=== PATIENT | male | born 1955 | race Caucasian/White ===

== ENCOUNTER 2020-03-17 14:59 | Inpatient (IN) | payer BC, MEDICARE ==
--- NOTE | 2020-03-17 15:24 | RAD ---
PORTABLE CHEST: 03/17/20 HISTORY: Chest pain. No evidence of infiltrate. Heart size is mildly prominent. No evidence of vascular congestion. No eff usion. IMPRESSION: No acute findings. POS: AH
[2020-03-17 15:31] LABS: #Monocytes 0.8 thou/uL (0.11-0.59); #Neutrophils 5.4 thou/uL (1.40-6.50); %Basophils 0.5 % (0.0-1.0); %Eosinophils 0.4 % (0.0-10.0); %Lymphocytes 24.6 % (21.0-51.0); %Monocytes 9.1 % (0.0-10.0); %Neutrophils 65.3 % (42.0-75.0); Hemoglobin 16.5 g/dL (14.0-18.0); Mean Corpuscular HGB CONC 34.3 g/dL (32.0-36.0); Mean Corpuscular Hemoglobin 32.1 pg (27.0-31.0); Mean Corpuscular Volume 93.5 fL (78.0-98.0); Mean Platelet Volume 8.5 fL (7.4-10.4); Platelet Count 199 thou/uL (130-400); RBC Distribution Width 12.5 % (11.5-14.5); Red Blood Cell (RBC) Count 5.15 mill/uL (4.70-6.10); White Blood Cell (WBC) Count 8.2 thou/uL (4.8-10.8)
[2020-03-17 15:52] LABS: ALT (SGPT) 39 U/L (8-55); AST (SGOT) 39 U/L (5-34); Albumin 3.8 g/dL (3.4-4.8); Alkaline Phosphatase 87 U/L (40-110); Anion Gap 17 mmol/L (10-20); BUN (Urea Nitrogen) 13 mg/dL (8.4-25.7); Bilirubin, Total 1.5 mg/dL (0.2-1.2); Calc. Creatinine Clearance 0 mL/min (70-130); Carbon Dioxide 22 mmol/L (23-31); Chloride 101 mmol/L (98-107); Globulin 3.3 g/dL (2.4-3.5); Glucose 186 mg/dL (80-115); Potassium 3.4 mmol/L (3.5-5.1); Protein, Total 7.1 g/dL (5.8-8.1); Sodium 137 mmol/L (136-145)
[2020-03-17] MEDS ORDERED: Acetaminophen 500 MG TAB ONE (16:56)
[2020-03-17 18:17] LABS: Troponin I 0.148 ng/mL (< 0.028)
[2020-03-17] MEDS ORDERED: Aspirin Chewable 81 MG TAB ONE (19:24)
[2020-03-17] MEDS ORDERED: Enoxaparin Sodium 100 MG/ML SYRINGE ONE (19:25)
[2020-03-17 21:50] VITALS: BMI 28.3
[2020-03-17] MEDS: Acetaminophen 325 MG TAB PO PRN (21:57)
[2020-03-17] MEDS ORDERED: Nitroglycerin 0.4 MG TAB (25 Tab Bottle) SL PRN (22:02)
--- NOTE | 2020-03-17 22:44 | PDOC.HHP ---
Hospitalist HPI - History of Present Illness History of Present Illness: ADMISSION DATE: 03/17/2020 TIME OF ASSESSMENT: 2099 PRIMARY CARE PHYSICIAN: Out of town CHIEF COMPLAINT: Chest pain and lightheadedness HPI: This is a 64-year-old gentleman who presents to the emergency department via EMS after going to the local urgent care center due to chest pain which started at approximately 1 PM and feeling generally unwell as well as lightheaded. The patient was noted to be severely tachycardic in the 200s therefore EMS was called. On arrival he was noted to be in SVT which was initially treated with adenosine (6 mg followed by dose of 12 mg). He became hypotensive therefore the decision was made to cardiovert. His heart rate improved to 104 and his blood pressure increased to 160/80. He recalls being extremely diaphoretic and lightheaded. Does not remember much after being cardioverted until he arrived to the emergency department here. He had been seen on Monday for Covid testing as required by his employer given his recent exposure to his mother who tested positive for Covid in February. The patient was noted to be hypertensive with systolic blood pressure in the 200s. He was given medication for his blood pressure and then discharged home with instructions to follow-up with his primary care physician. He is recently relocated here from the [facility] in [place] but has been unable to establish care with a PCP due to recent issues with [employer] Blue [employer] coverage. Patient states that he had been feeling foggy at that time that he was noted to have an elevated blood pressure and felt like that again today which is what prompted him to go to the urgent care center as he thought his blood pressure was elevated once again. It was not until started driving that he began to experience chest pain. His pain immediately resolved after cardioversion and currently he reports mild discomfort in the center of his chest. He states it was a 10 out of 10 in severity described as a stabbing pain. Now his discomfort is a 2 out of 10 described as a dull ache. Reports being treated for V. tach in the past and possibly A. fib. Denies any previous cardiac procedures. Only in the process of establishing care with a partner manager. ED COURSE: On arrival to the emergency department the patient was noted to have a blood pressure of 155/100 and heart rate of 99. Initial EKG done in the emergency department showed normal sinus rhythm however repeat EKG showed SVT with a rate of 150. ST depression seen in V3 through V6. He converted to normal sinus rhythm. Most recent EKG demonstrated normal sinus rhythm with a no ST changes. T wave inversion noted in V5 and V6. Laboratory studies showed white cell count of 8.2, hemoglobin 16.5, hematocrit 40.2, neutrophils 65.3%, platelets 199. Potassium 3.4, BUN 13, creatinine 1.36, GFR 53, glucose 186, total bilirubin 1.5, AST 39, ALT 39, alk phos 87, troponin negative. Chest x-ray was done showing no acute findings. PAST MEDICAL HISTORY: 1. Hypertension 2. History of V. tach PAST SURGICAL HISTORY: 1. Cholecystectomy 2. Tonsillectomy SOCIAL HISTORY: He denies any tobacco use. Reports occasional alcohol consumpt ion. Denies any illicit drug use. FAMILY HISTORY: Family history of heart disease. His father of an ND in his 70s. His mother also had an ND in her 60s. ALLERGIES: Penicillin Tazobactam CURRENT MEDICATIONS: Lisinopril 0.5 mg p.o. twice a day Metoprolol tartrate 50 mg p.o. twice daily Clonidine 0.1 mg p.o. as needed, recently prescribed Hospitalist ROS - Medication Medications: Active Medications Generic Name Dose Route Start Last Admin Trade Name Freq PRN Reason Stop Dose Admin Acetaminophen 650 mg 03/17/20 21:30 03/17/20 21:57 Acetaminophen 325 Mg Tab PO 03/18/20 07:25 650 mg Q4H PRN Administration Headache/Fever or Pain - Exam General Appearance: NAD, awake alert General - other findings: Appears flushed, Eye: PERRL, anicteric sclera ENT: normocephalic atraumatic, no oropharyngeal lesions Neck: supple, no lymphadenopathy Heart: RRR, no murmur, no gallops, normal peripheral pulses Respiratory: CTAB, no wheezes, no rales, no ronchi, normal chest expansion Gastrointestinal: soft, non-tender, non-distended, normal bowel sounds Extremities: no edema Skin: normal turgor, no lesions, no rashes Neurological: cranial nerve grossly intact, normal sensation to touch, no weakness Musculoskeletal: normal tone, normal strength, no muscle wasting Psychiatric: normal affect, normal behavior, A&O x 3 Hospitalist Results - Labs Result Diagrams: 03/17/20 15:03 03/17/20 22:15 Lab results: WBC 8.2 thou/uL (4.8-10.8) 03/17/20 15:03 Hgb 16.5 g/dL (14.0-18.0) 03/17/20 15:03 Hct 48.2 % (42.0-52.0) 03/17/20 15:03 MCV 93.5 fL (78.0-98.0) 03/17/20 15:03 Plt Count 199 thou/uL (130-400) 03/17/20 15:03 Neutrophils % 65.3 % (42.0-75.0) 03/17/20 15:03 Sodium 137 mmol/L (136-145) 03/17/20 15:03 Potassium 3.4 mmol/L (3.5-5.1) L 03/17/20 15:03 Chloride 101 mmol/L (98-107) 03/17/20 15:03 Carbon Dioxide 22 mmol/L (23-31) L 03/17/20 15:03 BUN 13 mg/dL (8.4-25.7) 03/17/20 15:03 Creatinine 1.36 mg/dL (0.7-1.3) H 03/17/20 15:03 Glucose 186 mg/dL (80-115) H 03/17/20 15:03 Calcium 9.0 mg/dL (7.8-10.44) 03/17/20 15:03 Total Bilirubin 1.5 mg/dL (0.2-1.2) H 03/17/20 15:03 AST 39 U/L (5-34) H 03/17/20 15:03 ALT 39 U/L (8-55) 03/17/20 15:03 Alkaline Phosphatase 87 U/L (40-110) 03/17/20 15:03 Troponin I 0.148 ng/mL (< 0.028) H 03/17/20 17:43 Serum Total Protein 7.1 g/dL (5.8-8.1) 03/17/20 15:03 Albumin 3.8 g/dL (3.4-4.8) 03/17/20 15:03 Hospitalist H&P A/P - Problem (1) SVT (supraventricular tachycardia) Code(s): I47.1 - SUPRAVENTRICULAR TACHYCARDIA Status: Acute (2) NSTEMI (non-ST elevated myocardial infarction) Code(s): I21.4 - NON-ST ELEVATION (NSTEMI) MYOCARDIAL INFARCTION Status: Acute (3) DAREN (acute kidney injury) Code(s): N17.9 - ACUTE KIDNEY FAILURE, UNSPECIFIED Status: Acute (4) Hypertension Code(s): I10 - ESSENTIAL (PRIMARY) HYPERTENSION Status: Chronic (5) History of ventricular tachycardia Code(s): Z86.79 - PERSONAL HISTORY OF OTHER DISEASES OF THE CIRCULATORY SYSTEM Status: Chronic - Plan Plan: Continue cardiac monitoring Cardiology consult placed NPO after midnight Continue Lovenox and ASA Monitor BP Echo ordered Hold antihypertensives for now (BP 130s systolic) Check Mg+ and TSH Check alcohol level and UDS IV fluids Monitor renal function Resume statin Check lipid panel with AM labs CODE STATUS: FULL Case discussed with Dr. Linares who agrees with plan as above.
[2020-03-17 22:45] LABS: Anion Gap 15 mmol/L (10-20); Carbon Dioxide 27 mmol/L (23-31); Chloride 101 mmol/L (98-107); Potassium 3.5 mmol/L (3.5-5.1); Sodium 139 mmol/L (136-145)
[2020-03-17 23:16] LABS: CKMB 3.5 ng/mL (0-6.6)
[2020-03-17] MEDS ORDERED: Morphine 2 MG/ML VIAL SLOW IVP SCH (23:45)
[2020-03-18] MEDS ORDERED: Magnesium 2 GM/50 ML 2 GM in Premix Bag 1 BAG IVPB SCH (00:30)
[2020-03-18] MEDS: Sodium Chloride 0.9% 1,000 ML IV SCH ×3 (00:44→19:55)
[2020-03-18] MEDS ORDERED: Nitroglycerin 2% Ointment 1 INCH/1 GM Packet ONE (04:43)
[2020-03-18] MEDS: Acetaminophen 325 MG TAB PO PRN (04:48)
[2020-03-18 05:44] LABS: Cardiac Risk 3.8 (Less than 4.5); Critical Call Chem Troponin I RESULT DECREASING
[2020-03-18 05:53] LABS: Amphetamine Not Detected (NotDetected); Barbiturates Screen Not Detected (NotDetected); Benzodiazepine Screen Not Detected (NotDetected); Cocaine Metabolite Screen Not Detected (NotDetected); Medtox Control Line Valid? VALID (VALID); Medtox Reader # READER 4; Methadone Not Detected (NotDetected); Methamphetamine Not Detected (NotDetected); Opiate Screen Not Detected (NotDetected); Oxycodone Screen Not Detected (NotDetected); Phencyclidine (PCP) Not Detected (NotDetected); THC/Cannabinoid Screen Not Detected (NotDetected); Tricyclic Screen Not Detected (NotDetected)
[2020-03-18 06:09] LABS: Bacteria/HPF None Seen HPF (None Seen); Bilirubin Negative (Negative); Blood, Urine Trace (Negative); Clarity Clear (Clear); Glucose, Urine (Dipstick) Normal (Negative); Ketone, Urine Negative (Negative); Leukocyte Negative Leu/uL (Negative); Mucous/LPF 3+ LPF (<2+); Nitrite Negative (Negative); Protein, Urine (Dipstick) 30 mg/dL (Neg-Trace); Specific Gravity, Urine 1.027 (1.002-1.036); Squamous Epithelial 0-3 HPF (0-3); Urobilinogen Normal mg/dL (Less than 2); pH, Urine 5.5 (5.0-9.0)
[2020-03-18 06:11] LABS: Urine Culture Reflex Yes Yes
[2020-03-18] MEDS: Nitroglycerin 2% Ointment 1 INCH/1 GM Packet TOP SCH ×3 (06:20→21:06)
[2020-03-18 06:26] LABS: CKMB 2.8 ng/mL (0-6.6)
[2020-03-18 07:23] LABS: SARS-CoV-2 MS2 Positive; SARS-CoV-2 N Gene Negative; SARS-CoV-2 S Gene Negative; SARS-CoV-2 by NAA Not Detected (NotDetected); SARS-CoV-2 orf1ab Negative
[2020-03-18] MEDS: Enoxaparin Sodium 80 MG/0.8 ML SYRINGE SC SCH ×2 (08:20→20:30)
[2020-03-18] MEDS: Aspirin Chewable 81 MG TAB PO SCH (08:20)
[2020-03-18 09:30] LABS: CKMB 2.4 ng/mL (0-6.6)
[2020-03-18] MEDS ORDERED: cloNIDine 0.1 MG TAB PO PRN (11:04)
[2020-03-18] MEDS: Morphine 4 MG/ML VIAL SLOW IVP PRN ×2 (14:00→22:08)
--- NOTE | 2020-03-18 14:24 | CON ---
DATE OF CONSULTATION: HISTORY OF PRESENT ILLNESS: Александр Bender is a 64-year-old white male, who approximately 3 years ago began to have episodes of rapid heartbeat. He will feel his heart beating fast and these episodes would last 2 to 5 minutes. They have increased in frequency to where he is having these at least one time per week, although at times he may have several in a day. He was told 2 to 3 years ago that he had ventricular tachycardia and underwent a stress test which apparently was normal. Yesterday, he again had the rapid heartbeat accompanied by chest tightness, shortness of breath and diaphoresis. This started approximately 1:00 p.m. and then 2 to 3 hours later, EMS was called. He was taken to an urgent care center. He was given adenosine 6 mg followed by 12 mg and he became hypotensive and was cardioverted. He then converted to sinus rhythm. PAST MEDICAL HISTORY: Hypertension, history of ventricular tachycardia according to the patient. OPERATIONS: Cholecystectomy and tonsillectomy. MEDICATIONS: 1. Clonidine 0.1 mg p.r.n. 2. Lisinopril 10 mg daily. 3. Metoprolol 50 b.i.d. 4. Pantoprazole 40 daily. ALLERGIES: PIPERACILLIN AND TAZOBACTAM (ZOSYN), PENICILLIN. SOCIAL HISTORY: He does not smoke. He occasionally drinks alcohol. FAMILY HISTORY: Father of [place] in his 70s. Mother of [place] in her early 60s. REVIEW OF SYSTEMS: Ten-point review of systems is otherwise unremarkable. PHYSICAL EXAMINATION: VITAL SIGNS: Blood pressure 152/86, pulse 63. HEENT: PERRL. NECK: Supple. CHEST: Clear. CARDIAC: S1 and S2 normal without any S3, S4, or murmurs. Carotid upstrokes normal without bruits. ABDOMEN: Normal bowel sounds without tenderness or organomegaly. EXTREMITIES: Revealed no clubbing, cyanosis, or edema. NEUROLOGIC: Grossly intact. SKIN: Warm and dry. LABORATORY DATA: EKG at the urgent care center showed supraventricular tachycardia with a rate of 180 to 200. There was [address] segment depression in V4 and V5. Subsequent EKGs here revealed development of inverted T-wave in V4 through V6. On the monitor, there is some indication that he may have paroxysmal atrial tachycardia. CBC is unremarkable. Troponin I is up to 0.452. Cholesterol 176, triglycerides 245, HDL 46, LDL 81. BNP 109.6. Sodium 139, potassium 3.5, chloride 101, carbon dioxide 27, BUN 13, creatinine 1.36, glucose 186. Echocardiogram revealed ejection fraction of 55% to 60% with evidence for diastolic dysfunction, mild left atrial enlargement, mild mitral regurgitation, and mild tricuspid regurgitation. IMPRESSION: 1. Supraventricular tachycardia, which apparently did not respond to adenosine 6 and then 12 mg. Due to hypotension, he was cardioverted. He has episodes at least one time per week. 2. Probable paroxysmal atrial tachycardia, from what we see on the monitor here. 3. History of ventricular tachycardia 3 years ago. 4. Non-ST elevation myocardial infarction, probably type 2, although he does have new T-wave changes V4 through V6. 5. Hypertension. 6. Positive family history. 7. Hypertriglyceridemia. RECOMMENDATIONS: With prolonged chest discomfort and new T-wave changes, the patient will undergo adenosine Cardiolite testing. Also, Electrophysiology will be consulted for consideration of EP testing and possible ablation. Job ID: [id number] [email or web address]
--- NOTE | 2020-03-18 15:52 | PDOC.HOSPP ---
- Subjective Encounter Date: 03/18/20 Encounter Time: 07:30 Subjective: Pt seen for followup re: NSTEMI. Chest pain is better. - Objective Vital Signs & Weight: Vital Signs (12 hours) Temp Pulse Resp BP Pulse Ox 03/18/20 15:37 97.8 F 71 16 156/84 H 95 03/18/20 11:06 97 03/18/20 10:58 98.0 F 63 16 152/86 H 97 03/18/20 07:03 98.4 F 66 16 92/68 94 L 03/18/20 04:00 97.8 F 68 16 135/72 96 Weight Weight 186 lb 4.65 oz I&O: 03/17/20 03/18/20 03/19/20 06:59 06:59 06:59 Intake Total 480 Output Total 100 Balance 380 Result Diagrams: 03/17/20 15:03 03/17/20 22:15 Additional Labs: I reviewed labs and [place] Hospitalist ROS - Review of Systems Cardiovascular: reports: chest pain. denies: palpitations, orthopnea, paroxysmal noc. dyspnea, edema, light headedness Gastrointestinal: denies: nausea, vomiting, abdominal pain, diarrhea, constipation, melena, hematochezia - Medication Medications: Active Medications Generic Name Dose Route Start Last Admin Trade Name Freq PRN Reason Stop Dose Admin Aspirin 81 mg 03/18/20 09:00 03/18/20 08:20 Aspirin Chewable 81 Mg Tab PO 81 mg DAILY MELY Administration Enoxaparin Sodium 80 mg 03/18/20 09:00 03/18/20 08:20 Enoxaparin Sodium 80 Mg/0.8 Ml Syringe SC 80 mg 0900,2100 MELY Administration Sodium Chloride 1,000 mls @ 100 mls/hr 03/17/20 23:45 03/18/20 11:42 Normal Saline 0.9% IV 1,000 mls .Q10H MELY Administration Morphine Sulfate 4 mg 03/18/20 11:10 03/18/20 14:00 Morphine 4 Mg/Ml Vial SLOW IVP 4 mg Q6H PRN Administration Pain Nitroglycerin 0.4 mg 03/17/20 22:02 03/17/20 23:35 Nitroglycerin 0.4 Mg Tab (25 Tab Bottle) SL 0.4 mg Q5MIN PRN Administration Chest Pain Nitroglycerin 0.5 inch 03/18/20 06:00 03/18/20 15:41 Nitroglycerin 2% Ointment 1 Inch/1 Gm Packet TOP 0.5 inch Q8HR MELY Administration - Exam General Appearance: awake alert Eye: anicteric sclera ENT: normocephalic atraumatic Neck: supple Heart: RRR Respiratory: CTAB Gastrointestinal: soft, non-tender Skin: no rashes Psychiatric: normal affect, normal behavior Hosp A/P - Plan - Problem (1) NSTEMI (non-ST elevated myocardial infarction) Code(s): I21.4 - NON-ST ELEVATION (NSTEMI) MYOCARDIAL INFARCTION Status: Acute (2) SVT (supraventricular tachycardia) Code(s): I47.1 - SUPRAVENTRICULAR TACHYCARDIA Status: Acute (3) DAREN (acute kidney injury) Code(s): N17.9 - ACUTE KIDNEY FAILURE, UNSPECIFIED Status: Acute (4) Hypertension Code(s): I10 - ESSENTIAL (PRIMARY) HYPERTENSION Status: Chronic (5) History of ventricular tachycardia Code(s): Z86.79 - PERSONAL HISTORY OF OTHER DISEASES OF THE CIRCULATORY SYSTEM Status: Chronic - Plan Plan: Monitor on telemetry Continue Lovenox and ASA For cath tomorrow EP service consulted Follow creatinine and lytes CODE STATUS: FULL
[2020-03-18] MEDS: Metoprolol Tartrate 50 MG TAB PO SCH ×2 (20:30→22:02)
--- NOTE | 2020-03-18 22:07 | CON ---
DATE OF CONSULTATION: 03/18/2020 REASON FOR CONSULTATION: SVT. HISTORY OF PRESENT ILLNESS: Mr. Bender is a 64-year-old gentleman, who presented to the hospital with palpitations, rapid heartbeats with associated chest tightness, shortness of breath and diaphoresis. This started and he called EMS 2-3 hours after onset of symptoms when he was taken to an urgent care center. He was given adenosine of 6 mg followed by 12 mg IV push dose. This did not terminate his SVT. He became hypotensive and was cardioverted emergently to restore sinus rhythm. Mr. Bender also reportedly has a history of possible ventricular tachycardia and is followed by a director business development out of [facility] in [facility] by the name of Lenny Carter. Currently, he is feeling well, resting in bed, reporting no symptoms, but rather unsettled by the events of the day. PAST MEDICAL HISTORY: 1. Hypertension. 2. Possible history of ventricular tachycardia pending confirm from director business development's records. HOME MEDICATIONS: 1. Clonidine p.r.n. 2. Lisinopril 10 mg daily. 3. Metoprolol 50 mg b.i.d. 4. Pantoprazole 40 mg daily. ALLERGIES: ZOSYN, PENICILLIN. SOCIAL HISTORY: Negative for tobacco, occasional alcohol consumption. Negative for illicit drug use. FAMILY HISTORY: Father in his 70s of an [place] and mother in her early 60s of an [place]. REVIEW OF SYSTEMS: A 12-point review of systems was otherwise unremarkable and as per HPI. OBJECTIVE: VITAL SIGNS: Temperature 97.8, pulse 71, blood pressure 156/84, respirations 16, and oxygen 95% on room air. GENERAL: Patient is alert, oriented. Speech is clear. Affect is appropriate. He is in no apparent distress, resting comfortably in bed at time of the exam. NEUROLOGIC EXAM: Grossly intact and nonfocal. HEENT: Normocephalic, atraumatic. Sclerae anicteric EOMs are intact. Oral mucosa is moist, pink with adequate dentition. NECK: Supple without jugular venous distention. Trachea is midline. There is no lymphadenopathy. LUNGS: Clear to auscultation bilaterally without wheezes, crackles, or rhonchi. CARDIOVASCULAR: His heart rate is irregularly irregular with crisp S1 and S2. PMI is nondisplaced. ABDOMEN: Soft, nontender without palpable masses. EXTREMITIES: Warm and dry to touch. Well perfused without clubbing, cyanosis, or edema. Gait was not assessed. LABORATORY DATA: Hematology was reviewed and unremarkable. Chemistry was reviewed, potassium 3.5, magnesium 1.8. Troponins mildly elevated, peaked at 0.452. Echocardiogram, preserved LVEF 55-60%. Date of study 03/18/2020. Left atrium dimension not measured/reported. 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 IMPRESSION: 1. Supraventricular tachycardia. 2. Questionable history of ventricular tachycardia. 3. [id number] myocardial infarction followed by Cardiology. 4. Hypertension. PLAN AND RECOMMENDATIONS: Mr. Bender is a pleasant 64-year-old gentleman, who comes in with a supraventricular tachycardia. 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 Alternatively, this could be a 1:1 atrial flutter. I have requested records from his director business development out of [place] regarding possible history of ventricular tachycardia. His EF is preserved and he is on beta zachary therapy already. He is currently undergoing workup and evaluation with Cardiology. Pending the results of these tests, we could consider an electrophysiology study with ablation possibly on Monday to further investigate and address his supraventricular tachycardia. We discussed the possible risks, benefits, and alternatives with this procedure and he is willing to proceed. We will continue to follow his workup in the next day or 2. Thank you for allowing me to participate in the care of this patient. Job ID: [id number]
[2020-03-19] MEDS: Nitroglycerin 2% Ointment 1 INCH/1 GM Packet TOP SCH ×3 (05:27→21:01)
[2020-03-19] MEDS: Sodium Chloride 0.9% 1,000 ML IV SCH ×2 (05:27→20:52)
[2020-03-19] MEDS: Metoprolol Tartrate 50 MG TAB PO SCH ×3 (08:04→20:50)
[2020-03-19] MEDS: Enoxaparin Sodium 80 MG/0.8 ML SYRINGE SC SCH ×2 (09:04→20:50)
[2020-03-19] MEDS: Aspirin Chewable 81 MG TAB PO SCH (09:04)
[2020-03-19] MEDS: Lisinopril 10 MG TAB PO SCH (13:09)
--- NOTE | 2020-03-19 13:11 | NM ---
EXAM: CARDIAC SPECT HISTORY: Chest pain, shortness of breath, hypertension, ventricular tachycardia, SVT, TECHNIQUE: A myocardial perfusion scan was performed using the single isotope 1 day protocol with leonard hnetium 99m sestamibi. [10 mCi] was injected intravenously for the rest exam followed by 30 mCi for the stress study. Pharmacologic stress with adenosine was monitored and interpreted by Dr. Gary FINDINGS: Homogeneous tracer distribution is seen in the myocardial segments on stress and rest image s without fixed or reversible defects. Gated SPECT LVEF: 54% Wall motion exam: Normal IMPRESSION: Normal myocardial perfusion scan
[2020-03-19] MEDS: Morphine 4 MG/ML VIAL SLOW IVP PRN ×2 (13:14→18:37)
[2020-03-19] MEDS ORDERED: ADENOSINE 60 MG/20 ML VIAL ONE (13:23)
--- NOTE | 2020-03-19 17:07 | PDOC.EP ---
- Subjective Date: 03/19/20 Time: 08:00 Interval History: Feels weak today. He is scheduled for stress test later today. He is agreeable to moving forward with EP study and possible ablation tomorrow. No recurrent heart racing, palpitations, or chest pain overnight - Review of Systems Constitutional: reports: weakness. denies: chills, fever, malaise, sweats, other Respiratory: denies: cough, dry, hemoptysis, pleuritic pain, shortness of breath, SOB with excertion, sputum, wheezing, other Cardiology: denies: chest pain, edema, heart racing, light headedness, paroxysmal noc. dyspnea, orthopnea, palpitations, passing out, pleuritic pain, pressure, swelling, other Gastrointestinal: denies: abdominal pain, constipation, diarrhea, hematochezia, melena, nausea, vomitting, other Musculoskeletal: denies: unstable gait, falls, neck pain, shoulder pain, arm pain, hand pain, leg pain, foot pain, other - Objective Allergies/Adverse Reactions: Allergies Allergy/AdvReac Type Severity Reaction Status Date / Time piperacillin [From Zosyn] Allergy Severe Anaphylaxis Verified 03/17/20 21:47 tazobactam [From Zosyn] Allergy Severe Anaphylaxis Verified 03/17/20 21:47 Penicillins Allergy Unknown Hives Verified 03/17/20 21:47 Current Medications Aspirin (Aspirin Chewable 81 Mg Tab) 81 mg PO DAILY [facility] Last Admin: 03/19/20 09:04 Dose: 81 mg Documented by: Clonidine (Clonidine 0.1 Mg Tab) 0.1 mg PO PRN PRN PRN Reason: Hypertension Enoxaparin Sodium (Enoxaparin Sodium 80 Mg/0.8 Ml Syringe) 80 mg SC 0900,2100 [facility] Last Admin: 03/19/20 09:04 Dose: 80 mg Documented by: Sodium Chloride (Normal Saline 0.9%) 1,000 mls @ 100 mls/hr IV .Q10H [facility] Last Admin: 03/19/20 05:27 Dose: 1,000 mls Documented by: Lisinopril (Lisinopril 10 Mg Tab) 10 mg PO DAILY [facility] Last Admin: 03/19/20 13:09 Dose: 10 mg Documented by: Metoprolol Tartrate (Metoprolol Tartrate 50 Mg Tab) 50 mg PO BID [facility] Last Admin: 03/19/20 13:09 Dose: 50 mg Documented by: Morphine Sulfate (Morphine 4 Mg/Ml Vial) 4 mg SLOW IVP Q6H PRN PRN Reason: Pain Last Admin: 03/19/20 13:14 Dose: 4 mg Documented by: Nitroglycerin (Nitroglycerin 0.4 Mg Tab (25 Tab Bottle)) 0.4 mg SL Q5MIN PRN PRN Reason: Chest Pain Last Admin: 03/17/20 23:35 Dose: 0.4 mg Documented by: Nitroglycerin (Nitroglycerin 2% Ointment 1 Inch/1 Gm Packet) 0.5 inch TOP Q8HR [facility] Last Admin: 03/19/20 14:12 Dose: Not Given Documented by: Pantoprazole Sodium (Pantoprazole 40 Mg Tab) 40 mg PO DAILY [facility] Last Admin: 03/19/20 09:04 Dose: 40 mg Documented by: Vital Signs & Weight: Vital Signs Temp Pulse Resp BP Pulse Ox 03/19/20 16:24 99.1 F 67 16 159/88 H 96 03/19/20 13:07 98.3 F 70 18 178/98 H 98 03/19/20 07:30 98.4 F 65 16 173/87 H 92 L 03/19/20 06:25 93 L Weight 186 lb 4.65 oz I/O: I/O 03/18/20 03/19/20 03/20/20 06:59 06:59 06:59 Intake Total 480 1800 Output Total 100 Balance 380 1800 - Physical Exam General: alert & oriented x3, appears well, no apparent distress, speech clear, affect appropriate HEENT: mucus membranes moist, normocephaly Neck: supple neck, midline trachea, no JVD/HJR, no masses, no bruit, no lymphadenopathy, no thromegaly Cardiology: regular rate and rhythm, no murmur, regular rate, regular rhythm, PMI nondisplaced Lungs: clear to auscultation, normal breath sounds, normal exam, no wheeze, rales, rhonchi, no wheezes, no rales, no rhonchi Neurology: cranial nerve 2-12 intact, grossly intact, motor function intact, sensory function intact, negative rhomberg, coordination normal, no lateralizing findings - Labs Result Diagrams: 03/17/20 15:03 03/17/20 22:15 - EKG Interpretation EKG Method: Telemetry EKG shows: Sinus rhythm - Assessment/Plan Assessment/Plan: IMPRESSION: 1. Supraventricular tachycardia. 2. Questionable history of ventricular tachycardia. 3. [id number] myocardial infarction followed by Cardiology. 4. Hypertension. pending stress test later today. Anticipate EP study with possible ablation tomorrow scheduled at 10:00 a.m.. NPO after midnight. Labs pending in the morning. verbal consent obtained bedside and patient is agreeable to sign paper consent. I did not see any records on the chart/obtained from [facility] automatic dispenser mechanic as requested yesterday regarding possible history of ventricular tachycardia
--- NOTE | 2020-03-19 17:58 | PDOC.HOSPP ---
- Subjective Encounter Date: 03/19/20 Encounter Time: 09:30 Subjective: Patient seen for follow-up regarding supraventricular tachycardia. Denies chest pain. - Objective Vital Signs & Weight: Vital Signs (12 hours) Temp Pulse Resp BP Pulse Ox 03/19/20 16:24 99.1 F 67 16 159/88 H 96 03/19/20 13:07 98.3 F 70 18 178/98 H 98 03/19/20 07:30 98.4 F 65 16 173/87 H 92 L 03/19/20 06:25 93 L Weight Weight 186 lb 4.65 oz I&O: 03/18/20 03/19/20 03/20/20 06:59 06:59 06:59 Intake Total 480 1800 Output Total 100 Balance 380 1800 Result Diagrams: 03/17/20 15:03 03/17/20 22:15 Additional Labs: I reviewed patient's labs and MAR EKG Reviewed by me: Yes (Normal sinus rhythm on telemetry) Hospitalist ROS - Review of Systems Cardiovascular: denies: chest pain, palpitations, orthopnea, paroxysmal noc. dyspnea, edema, light headedness Gastrointestinal: denies: nausea, vomiting, abdominal pain, diarrhea, constipation, melena, hematochezia - Medication Medications: Active Medications Generic Name Dose Route Start Last Admin Trade Name Freq PRN Reason Stop Dose Admin Aspirin 81 mg 03/18/20 09:00 03/19/20 09:04 Aspirin Chewable 81 Mg Tab PO 81 mg DAILY MELY Administration Enoxaparin Sodium 80 mg 03/18/20 09:00 03/19/20 09:04 Enoxaparin Sodium 80 Mg/0.8 Ml Syringe SC 80 mg 0900,2100 MELY Administration Sodium Chloride 1,000 mls @ 100 mls/hr 03/17/20 23:45 03/19/20 05:27 Normal Saline 0.9% IV 1,000 mls .Q10H MELY Administration Lisinopril 10 mg 03/19/20 09:00 03/19/20 13:09 Lisinopril 10 Mg Tab PO 10 mg DAILY MELY Administration Metoprolol Tartrate 50 mg 03/18/20 21:00 03/19/20 13:09 Metoprolol Tartrate 50 Mg Tab PO 50 mg BID MELY Administration Morphine Sulfate 4 mg 03/18/20 11:10 03/19/20 13:14 Morphine 4 Mg/Ml Vial SLOW IVP 4 mg Q6H PRN Administration Pain Nitroglycerin 0.4 mg 03/17/20 22:02 03/17/20 23:35 Nitroglycerin 0.4 Mg Tab (25 Tab Bottle) SL 0.4 mg Q5MIN PRN Administration Chest Pain Nitroglycerin 0.5 inch 03/18/20 06:00 03/19/20 14:12 Nitroglycerin 2% Ointment 1 Inch/1 Gm Packet TOP Not Given Q8HR MELY Pantoprazole Sodium 40 mg 03/19/20 09:00 03/19/20 09:04 Pantoprazole 40 Mg Tab PO 40 mg DAILY EMLY Administration - Exam General Appearance: awake alert Eye: anicteric sclera ENT: no oropharyngeal lesions Neck: supple Heart: RRR Respiratory: CTAB Gastrointestinal: soft, non-tender Extremities: no edema Musculoskeletal: no muscle wasting Psychiatric: normal affect, normal behavior Hosp A/P - Plan - Problem (1) SVT (supraventricular tachycardia) Code(s): I47.1 - SUPRAVENTRICULAR TACHYCARDIA Status: Acute (2) NSTEMI (non-ST elevated myocardial infarction) Code(s): I21.4 - NON-ST ELEVATION (NSTEMI) MYOCARDIAL INFARCTION Status: Acute (3) DAREN (acute kidney injury) Code(s): N17.9 - ACUTE KIDNEY FAILURE, UNSPECIFIED Status: Acute (4) Hypertension Code(s): I10 - ESSENTIAL (PRIMARY) HYPERTENSION Status: Chronic (5) History of ventricular tachycardia Code(s): Z86.79 - PERSONAL HISTORY OF OTHER DISEASES OF THE CIRCULATORY SYSTEM Status: Chronic - Plan Plan: Patient had a stress test today, which was normal. Plan for ablation tomorrow. Check a.m. labs.
[2020-03-20 04:37] LABS: #Eosinphils 0.2 thou/uL (0.0-0.7); #Lymphocytes 1.8 thou/uL (1.20-3.40); #Monocytes 0.8 thou/uL (0.11-0.59); #Neutrophils 4.6 thou/uL (1.40-6.50); %Basophils 0.6 % (0.0-1.0); %Eosinophils 2.2 % (0.0-10.0); %Lymphocytes 24.7 % (21.0-51.0); %Monocytes 10.2 % (0.0-10.0); %Neutrophils 62.3 % (42.0-75.0); Mean Corpuscular Hemoglobin 32.4 pg (27.0-31.0); Mean Corpuscular Volume 95.2 fL (78.0-98.0); Mean Platelet Volume 8.6 fL (7.4-10.4); Platelet Count 141 thou/uL (130-400); RBC Distribution Width 12.2 % (11.5-14.5); White Blood Cell (WBC) Count 7.4 thou/uL (4.8-10.8)
[2020-03-20 04:50] LABS: Anion Gap 13 mmol/L (10-20); BUN (Urea Nitrogen) 10 mg/dL (8.4-25.7); Calc. Creatinine Clearance 110 mL/min (70-130); Carbon Dioxide 25 mmol/L (23-31); Chloride 105 mmol/L (98-107); Glucose 101 mg/dL (80-115); Potassium 3.7 mmol/L (3.5-5.1); Sodium 139 mmol/L (136-145)
[2020-03-20] MEDS: Morphine 4 MG/ML VIAL SLOW IVP PRN ×2 (04:57→17:56)
[2020-03-20] MEDS: Nitroglycerin 2% Ointment 1 INCH/1 GM Packet TOP SCH ×3 (05:27→21:41)
[2020-03-20] MEDS: Enoxaparin Sodium 80 MG/0.8 ML SYRINGE SC SCH ×2 (07:31→21:41)
[2020-03-20] MEDS: Lisinopril 10 MG TAB PO SCH (08:09)
[2020-03-20] MEDS: Metoprolol Tartrate 50 MG TAB PO SCH ×2 (08:09→21:41)
[2020-03-20] MEDS: Aspirin Chewable 81 MG TAB PO SCH (08:09)
[2020-03-20] MEDS ORDERED: Ondansetron PF 4 MG/2 ML Vial ONE (09:02)
[2020-03-20] MEDS ORDERED: Lidocaine 1% PF 5 ML VIAL ONE (09:02)
[2020-03-20] MEDS: Sodium Chloride 0.9% 1,000 ML IV SCH ×3 (11:05→19:34)
[2020-03-20] MEDS ORDERED: Heparin 10,000 UNITS/ 10 ML VIAL ONE (13:06)
[2020-03-20] MEDS ORDERED: Phenylephrine 10 MG/ML VIAL ONE (13:30)
[2020-03-20] MEDS ORDERED: Propofol 500 MG/50 ML VIAL ONE ×2 (13:30→14:42)
[2020-03-20] MEDS ORDERED: Fentanyl 100 MCG/2 ML VIAL ONE (13:37)
[2020-03-20] MEDS ORDERED: Midazolam HCl 2 mg/2 ml Vial ONE (13:37)
[2020-03-20] MEDS ORDERED: Isoproterenol 0.2 MG/1 ML AMP ONE (14:08)
--- NOTE | 2020-03-20 16:07 | PDOC.DS.DS ---
Provider - Provider Date of Admission: 03/17/20 19:37 Date of Discharge: 03/20/20 Admitting Provider: Wing Linares MD Consultations: Cardiology (Dr. Nowak), Other (Electrophysiology: Dr. Romero) Primary Care Physician: PAT RYAN JR, MD Course - Hospital Course Hospital Course: Discharge diagnosis: 1. SVT 2. Inducible AVNRT 3. Chest pain, most likely secondary to arrhythmia 4. Elevated troponin secondary to arrhythmia 5. Dyslipidemia 6. COVID-19 PCR test negative Hospital course: Patient is a pleasant 59-year-old gentleman was admitted to the hospital on March 17, 2020 for chest pain and tach arrhythmia. He was seen by cardiology and electrophysiology services. Nuclear stress test was normal, with left ventricular ejection fraction of 54%. On March 20 he underwent electrophysiology study. He had inducible AVNRT and underwent ablation. He has been cleared for discharge by consulting services. Please note that patient also had elevated troponin I of 0.452 at the time of admission, most likely secondary to arrhythmia. Fasting lipid profile showed triglycerides of 245, cholesterol 176, LDL cholesterol 81 and HDL cholesterol 46. He is advised to follow-up with primary care provider for management of dyslipidemia. Many thanks for allowing me to participate in your patient's care. Please feel free to contact me with any questions or concerns. Discharge destination: Home Total amount of time spent coordinating this discharge: 32 minutes - Labs Lab Results: 03/20/20 03:51 03/20/20 03:51 Abnormal Lab Results - Last 48 hrs 03/20/20 03:51: RBC 4.00 L, Hgb 13.0 L, Hct 38.1 L, MCH 32.4 H, Monocytes % 10.2 H, Monocytes # 0.8 H Microbiology - Entire Visit 03/18/20 06:10 Urine clean catch Urine Culture - Final NO GROWTH AT 48 HOURS - Physical Exam Vitals: Vital Signs (12 hours) Temp Pulse Resp BP Pulse Ox 03/20/20 11:29 98.1 F 58 L 16 149/88 H 98 03/20/20 08:05 98.3 F 62 15 167/85 H 94 L Weight Weight 188 lb 11.451 oz Physical Exam: The patient was seen and examined on the day of discharge. Patient denies chest pain or shortness of breath. Vital signs are stable. S1 and S2 are heard. Lungs are clear to auscultation bilaterally. Plan - Discharge Medications Home Medications: Medication Instructions Recorded Confirmed Type Lisinopril 10 mg PO DAILY 03/18/20 03/18/20 History Metoprolol Tartrate 50 mg PO BID 03/18/20 03/18/20 History Pantoprazole [Protonix] 40 mg PO DAILY 03/18/20 03/18/20 History cloNIDine [Catapres] 0.1 mg PO PRN PRN 03/18/20 03/18/20 History Allergies: piperacillin [From Zosyn] Allergy (Severe, Verified 03/17/20 21:47) Anaphylaxis tazobactam [From Zosyn] Allergy (Severe, Verified 03/17/20 21:47) Anaphylaxis Penicillins Allergy (Unknown, Verified 03/17/20 21:47) Hives - Discharge Instructions Discharge Instructions:: Follow-up with your primary care provider for management of dyslipidemia. Activity:: Activity as Tolerated Nourishment:: Heart Healthy Diet - Follow up Plan Referrals: Bruno Nowak MD [Active] - Lavell Romero MD [Rn Angiography] - Pat Ryan Jr, MD [Primary Care Provider] - 3 Days Disposition: HOME Quality - Care Measures CORE MEASURES:: N/A
--- NOTE | 2020-03-20 16:50 | OP ---
DATE OF PROCEDURE: 03/20/2020 PROCEDURE PERFORMED: Electrophysiology study and radiofrequency ablation. REASON FOR PROCEDURE: Mr. Bender is a 64-year-old male with history of recurrent palpitations, now admitted after an EKG documented SVT with cycle length about 280 milliseconds, which eventually required electrical cardioversion. DESCRIPTION OF PROCEDURE: The patient received propofol and deep sedation by Anesthesia specialist. After adequate level of sedation achieved, the left and right femoral venous areas were prepped and draped, anesthetized with subcutaneous lidocaine. Under ultrasound guidance, both femoral veins were cannulated. On the left side, a 6- and 8-Citizen Of [place] sheaths were used to advance an Octapolar and a Decapolar catheter into the right atrium. 3D map of the right atrium, His bundle, and CS positions were obtained with the help of ELZBIETA system. From the right femoral vein, an 8-Citizen [place] short sheath was introduced initially. On basic EP study, following findings were noted. Baseline rhythm was sinus rhythm with cycle length 967 milliseconds, AK 194 millisecond, QRS 54 millisecond, QT 388 millisecond, AH 93 milliseconds, HV 54 milliseconds. AV Wenckebach cycle length was 380 milliseconds. Ventricular pacing was used to obtain the retrograde Wenckebach cycle length at 220 milliseconds. Central concentric retrograde VA conduction was seen. Atrial extrastimuli testing was performed on and off Isuprel, and on Isuprel, we were able to demonstrate dual AV node bel physiology. On incremental dose of Isuprel up to 10 mcg, we were able to induce a narrow complex tachycardia, matching the clinical tachycardia with cycle length at 240 am millisecond. Very short VA timing less than 80 milliseconds was seen, which was suggestive of AV bel reentrant tachycardia. Ventricular overdrive pacing drive terminated at the arrhythmia. Decision was made to proceed with slow pathway modification. Using a 4-mm Safire catheter, further fine mapping of the AV bel fast and slow pathway area were obtained. A radiofrequency ablation was delivered with settings of 40 rebolledo, 50 degree cutoff with total ablation of 207 seconds. During the ablation, junctional beats were observed. No AV block was seen. Following this, the Isuprel was again administered. Repeated pacing of the left atrium was performed via the CS and also ventricular access to my testing was performed. No ventricular tachycardia was induced up to 4 ventricular extrastimuli. Ventricular ERP measured 500/200/180/180 milliseconds. Also with Isuprel, no additional arrhythmias induced with atrial stimulation down to 200 milliseconds did not reinduce any atrial flutter or atrial fibrillation either. No recurrent SVT was seen either. Isuprel was stopped. The catheter was removed from the body. The cardiac silhouette did not change throughout the procedure. The femoral venous sheaths were pulled and manual pressure was applied to achieve hemostasis. CONCLUSION: 1. Inducible atrioventricular bel reentrant tachycardia. 2. Slow pathway modification performed, elevating the slow pathway and inducibility of the atrioventricular bel reentrant tachycardia. 3. Normal sinus and atrioventricular bel function pre and post procedure. 4. Normal His-Purkinje function. No evidence of accessory pathway present. No additional arrhythmias induced on and off Isuprel. PLAN: Routine followup. Job ID: [id number]
--- NOTE | 2020-03-20 19:44 | PDOC.HOSPP ---
- Subjective Encounter Date: 03/20/20 Encounter Time: 19:40 Subjective: Seen for follow-up regarding SVT. Reports chest discomfort. - Objective Vital Signs & Weight: Vital Signs (12 hours) Temp Pulse Resp BP Pulse Ox 03/20/20 19:35 98.3 F 70 16 169/80 H 98 03/20/20 16:42 97.3 F L 68 18 163/91 H 96 03/20/20 11:29 98.1 F 58 L 16 149/88 H 98 03/20/20 08:05 98.3 F 62 15 167/85 H 94 L Weight Weight 188 lb 11.451 oz I&O: 03/19/20 03/20/20 03/21/20 06:59 06:59 06:59 Intake Total 1800 3000 1400 Output Total 450 Balance 1800 3000 950 Result Diagrams: 03/20/20 03:51 03/20/20 03:51 Additional Labs: Labs and MAR reviewed by me EKG Reviewed by me: Yes (Normal sinus rhythm on telemetry) Hospitalist ROS - Review of Systems Cardiovascular: denies: chest pain, palpitations, orthopnea, paroxysmal noc. dyspnea, edema, light headedness Gastrointestinal: denies: nausea, vomiting, abdominal pain, diarrhea, constipation, melena, hematochezia - Medication Medications: Active Medications Generic Name Dose Route Start Last Admin Trade Name Onealq PRN Reason Stop Dose Admin Aspirin 81 mg 03/18/20 09:00 03/20/20 08:09 Aspirin Chewable 81 Mg Tab PO 81 mg DAILY MELY Administration Enoxaparin Sodium 80 mg 03/18/20 09:00 03/20/20 07:31 Enoxaparin Sodium 80 Mg/0.8 Ml Syringe SC Not Given 0900,2100 MELY Sodium Chloride 1,000 mls @ 100 mls/hr 03/17/20 23:45 03/20/20 19:34 Normal Saline 0.9% IV 1,000 mls .Q10H MELY Administration Lisinopril 10 mg 03/19/20 09:00 03/20/20 08:09 Lisinopril 10 Mg Tab PO 10 mg DAILY MELY Administration Metoprolol Tartrate 50 mg 03/18/20 21:00 03/20/20 08:09 Metoprolol Tartrate 50 Mg Tab PO 50 mg BID MELY Administration Morphine Sulfate 4 mg 03/18/20 11:10 03/20/20 17:56 Morphine 4 Mg/Ml Vial SLOW IVP 4 mg Q6H PRN Administration Pain Nitroglycerin 0.4 mg 03/17/20 22:02 03/17/20 23:35 Nitroglycerin 0.4 Mg Tab (25 Tab Bottle) SL 0.4 mg Q5MIN PRN Administration Chest Pain Nitroglycerin 0.5 inch 03/18/20 06:00 03/20/20 14:55 Nitroglycerin 2% Ointment 1 Inch/1 Gm Packet TOP Not Given Q8HR MELY Pantoprazole Sodium 40 mg 03/19/20 09:00 03/20/20 08:09 Pantoprazole 40 Mg Tab PO 40 mg DAILY MELY Administration - Exam General Appearance: awake alert Eye: anicteric sclera ENT: no oropharyngeal lesions, moist mucosa Neck: supple Heart: RRR Respiratory: CTAB Gastrointestinal: soft, non-tender Skin: no rashes Psychiatric: normal affect, normal behavior Hosp A/P - Plan 64-year-old gentleman admitted on March 17, 2020 for chest pain and supraventricular tachycardia. Seen by cardiology and electrophysiology ser vices. Also had acute kidney injury, which resolved. He had nuclear stress test on March 19, normal. He underwent ablation for AVNRT on March 20. He reports chest discomfort. D-dimer is low. He will most likely be discharged home on March 21, 2020. - Problem (1) SVT (supraventricular tachycardia) Code(s): I47.1 - SUPRAVENTRICULAR TACHYCARDIA Status: Acute (2) NSTEMI (non-ST elevated myocardial infarction) Code(s): I21.4 - NON-ST ELEVATION (NSTEMI) MYOCARDIAL INFARCTION Status: Acute (3) DAREN (acute kidney injury) Code(s): N17.9 - ACUTE KIDNEY FAILURE, UNSPECIFIED Status: Resolved (4) Hypertension Code(s): I10 - ESSENTIAL (PRIMARY) HYPERTENSION Status: Chronic - Plan Plan: Status post ablation today. DAREN has resolved. Stress test is normal. Likely home in the next 24 hours.
[2020-03-21] MEDS: Sodium Chloride 0.9% 1,000 ML IV SCH ×3 (03:23→15:47)
[2020-03-21] MEDS: Nitroglycerin 2% Ointment 1 INCH/1 GM Packet TOP SCH ×2 (05:06→13:29)
[2020-03-21] MEDS: Lisinopril 10 MG TAB PO SCH ×2 (08:15→20:34)
[2020-03-21] MEDS: Aspirin Chewable 81 MG TAB PO SCH (08:15)
[2020-03-21] MEDS: Metoprolol Tartrate 50 MG TAB PO SCH ×2 (08:15→20:34)
[2020-03-21] MEDS: Enoxaparin Sodium 80 MG/0.8 ML SYRINGE SC SCH (08:16)
--- NOTE | 2020-03-21 10:20 | EKG ---
Test Reason : Blood Pressure : / mmHG Vent. Rate : 074 BPM Atrial Rate : 074 BPM P-R Int : 136 ms QRS Dur : 078 ms QT Int : 386 ms P-R-T Axes : -20 005 -09 degrees QTc Int : 428 ms Normal sinus rhythm Nonspecific T wave abnormality Abnormal ECG Confirmed by MATTHIEU JASSO ([id number]), managing editor ERNESTINE BRUNNER ([id number] on 03/21/2020 10:20:13 AM Referred By: Confirmed By:MATTHIEU Martínez
[2020-03-21] MEDS: Morphine 4 MG/ML VIAL SLOW IVP PRN (10:21)
[2020-03-21] MEDS ORDERED: Ketorolac Tromethamine 30 MG/ML VIAL IVP SCH ×2 (11:00→18:00)
[2020-03-21] MEDS: Ketorolac Tromethamine 30 MG/ML VIAL IVP SCH (18:25)
--- NOTE | 2020-03-21 18:41 | PDOC.HOSPP ---
- Subjective Encounter Date: 03/21/20 Encounter Time: 12:30 Subjective: Patient seen and examined for chest discomfort/SVT requiring ablation. Continues to have chest discomfort. Headache which had started from nitroglycerin is slowly improving. Had some lightheadedness earlier today. No palpitations or diaphoresis reported. - Objective Vital Signs & Weight: Vital Signs (12 hours) Temp Pulse Resp BP BP BP Pulse Ox 03/21/20 15:15 98.3 F 64 18 158/77 H 149/85 H 95 03/21/20 11:11 98.4 F 62 16 154/83 H 93 L 03/21/20 07:29 98.9 F 60 16 166/84 H 95 Weight Weight 188 lb 11.451 oz I&O: 03/20/20 03/21/20 03/22/20 06:59 06:59 06:59 Intake Total 3000 1400 Output Total 1250 400 Balance 3000 150 -400 Result Diagrams: 03/20/20 03:51 03/20/20 03:51 Additional Labs: Abnormal Lab Results - Last 48 hrs 03/20/20 03:51: RBC 4.00 L, Hgb 13.0 L, Hct 38.1 L, MCH 32.4 H, Monocytes % 10.2 H, Monocytes # 0.8 H 03/20/20 17:54: D-Dimer Less than 0.27 L Microbiology - Entire Visit 03/18/20 06:10 Urine clean catch Urine Culture - Final NO GROWTH AT 48 HOURS EKG Reviewed by me: Yes (Sinus rhythm on telemetry) Hospitalist ROS - Review of Systems Cardiovascular: reports: chest pain. denies: palpitations, orthopnea, paroxysmal noc. dyspnea, edema, light headedness, other Gastrointestinal: denies: nausea, vomiting, abdominal pain, diarrhea, constipation, melena, hematochezia, other - Medication Medications: Active Medications Generic Name Dose Route Start Last Admin Trade Name Freq PRN Reason Stop Dose Admin Aspirin 81 mg 03/18/20 09:00 03/21/20 08:15 Aspirin Chewable 81 Mg Tab PO 81 mg DAILY MELY Administration Sodium Chloride 1,000 mls @ 100 mls/hr 03/17/20 23:45 03/21/20 15:47 Normal Saline 0.9% IV 1,000 mls .Q10H MELY Administration Metoprolol Tartrate 50 mg 03/18/20 21:00 01/16/21 08:15 Metoprolol Tartrate 50 Mg Tab PO 50 mg BID MELY Administration Morphine Sulfate 4 mg 03/18/20 11:10 03/21/20 10:21 Morphine 4 Mg/Ml Vial SLOW IVP 4 mg Q6H PRN Administration Pain Nitroglycerin 0.4 mg 03/17/20 22:02 03/17/20 23:35 Nitroglycerin 0.4 Mg Tab (25 Tab Bottle) SL 0.4 mg Q5MIN PRN Administration Chest Pain Nitroglycerin 0.5 inch 03/18/20 06:00 03/21/20 13:29 Nitroglycerin 2% Ointment 1 Inch/1 Gm Packet TOP Not Given Q8HR MELY Pantoprazole Sodium 40 mg 03/19/20 09:00 03/21/20 08:15 Pantoprazole 40 Mg Tab PO 40 mg DAILY MELY Administration - Exam General Appearance: awake alert Neck: supple, no JVD Heart: no gallops, no rubs Respiratory: no wheezes, no rales, no ronchi Gastrointestinal: soft, non-tender, normal bowel sounds Extremities: no cyanosis Neurological: no new deficit Hosp A/P - Plan DVT proph w/SCDs Chest discomfortACS ruled out SVT/PAT s/p ablation this admission Hyperlipidemia Hypokalemia AKIPOA Anemia suspected due to nutritional deficiency Plan: Patient continues to have chest discomfort. Case discussed with cardiology who recommended Toradol. Will discontinue Lovenox. Discontinue IV fluids. Will DC nitro patch. Continue low-dose aspirin. Lisinopril dose increased. Continue beta-blockers. Will continue PPI continue other medications as above DC later today or in a.m. once chest pain improves
[2020-03-21] MEDS ORDERED: Acetaminophen 325 MG TAB PO PRN (18:44)
[2020-03-22] MEDS: Ketorolac Tromethamine 30 MG/ML VIAL IVP SCH (03:06)
[2020-03-22] MEDS: Lisinopril 10 MG TAB PO SCH (08:19)
[2020-03-22] MEDS: Metoprolol Tartrate 50 MG TAB PO SCH (08:19)
[2020-03-22] MEDS: Aspirin Chewable 81 MG TAB PO SCH (08:19)
[2020-03-22 11:23] VITALS: BP 153/90; TEMP 98.5
--- NOTE | 2020-03-22 17:18 | PDOC.DS.DS ---
Provider - Provider Date of Admission: 03/17/20 19:37 Date of Discharge: 03/22/20 Admitting Provider: Wing Linares MD Consultations: Cardiology, Other (Electrophysiology) Primary Care Physician: PAT RYAN JR, MD Course - Hospital Course Hospital Course: Patient is a 64-year-old male with hypertension and tachyarrhythmias in the past presented to the emergency room with chest discomfort. His work-up was consistent with supraventricular tachycardia that failed adenosine. He was emergently cardioverted in the ER restoring sinus rhythm. Please refer to the history and physical for further details. The patient was admitted to the hospital with above diagnosis. He was evaluated by cardiology and electrophysiology. His D-dimer was negative. His troponins maximum was 0.452. He underwent AV bel ablation on 03/20. After the above procedure he developed chest discomfort that improved with anti-inflammatories. He also had mild acute kidney injury that has resolved. Electrolytes have been replaced. He has been cleared by cardiology for discharge. Final diagnosis: Chest discomfortACS ruled out SVT/PAT s/p ablation this admission Hyperlipidemia Hypokalemia AKIPOA Anemia suspected due to nutritional deficiency - Labs Lab Results: 03/20/20 03:51 03/20/20 03:51 Abnormal Lab Results - Last 48 hrs 03/20/20 17:54: D-Dimer Less than 0.27 L Microbiology - Entire Visit 03/18/20 06:10 Urine clean catch Urine Culture - Final NO GROWTH AT 48 HOURS - Physical Exam Vitals: Vital Signs (12 hours) Temp Pulse Resp BP Pulse Ox 03/22/20 11:22 98.5 F 57 L 16 153/90 H 95 03/22/20 08:19 98.1 F 61 16 176/91 H 95 Weight Weight 188 lb 11.451 oz Physical Exam: The patient was seen and examined on the day of discharge. Problem - Discharge Plan Assessment: FOCUS: Transition from Acute Care after Discharge GOAL: Successful transition to care in the community YOUR TASKS: (1) review all information outlined in your discharge packet (2) follow any instructions outlined in your discharge packet (3) contact your primary care provider if you have questions or need additional assistance See patient discharge instruction sheet for detailed teaching. Patient verbalizes understanding of medications and is able to verbalize follow-up care. See Discharge Plan for additional discharge information. Patient secured in private vehicle prior to departure. Plan - Discharge Medications Prescriptions: Etodolac [Lodine] 200 mg PO BID #20 cap Metoprolol Tartrate 50 mg PO BID #60 tablet Lisinopril [Zestril] 10 mg PO BID #60 tab Home Medications: Medication Instructions Recorded Confirmed Type Pantoprazole [Protonix] 40 mg PO DAILY 03/18/20 03/18/20 History cloNIDine [Catapres] 0.1 mg PO PRN PRN 03/18/20 03/18/20 History Aspirin Chewable [Aspirin Chewable 81 mg PO DAILY tab 03/22/20 Rx Tablet] Etodolac [Lodine] 200 mg PO BID #20 cap 03/22/20 Rx Lisinopril [Zestril] 10 mg PO BID #60 tab 03/22/20 Rx Metoprolol Tartrate 50 mg PO BID #60 tablet 03/22/20 Rx Allergies: piperacillin [From Zosyn] Allergy (Severe, Verified 03/17/20 21:47) Anaphylaxis tazobactam [From Zosyn] Allergy (Severe, Verified 03/17/20 21:47) Anaphylaxis Penicillins Allergy (Unknown, Verified 03/17/20 21:47) Hives - Discharge Instructions Discharge Instructions:: Follow-up with your primary care provider for management of dyslipidemia. BMP after 1 week - PCP to arrange/follow Activity:: Activity as Tolerated Nourishment:: Heart Healthy Diet - Follow up Plan Referrals: Pat Ryan Jr, MD [Primary Care Provider] - 3 Days (Please call office to schedule a follow up appointment.) Bruno Nowak MD [Active] - 2-3 Weeks (please call to schedule an appointment) Lavell Romero MD [Celery Wrapper] - 2-3 Weeks (Please call to schedule a follow up appointment.) Disposition: HOME Quality - Care Measures CORE MEASURES:: N/A
--- NOTE | 2020-03-29 19:29 | EKG ---
Test Reason : STAT Blood Pressure : / mmHG Vent. Rate : 072 BPM Atrial Rate : 072 BPM P-R Int : 134 ms QRS Dur : 090 ms QT Int : 394 ms P-R-T Axes : 032 035 226 degrees QTc Int : 431 ms Normal sinus rhythm ST T wave changes suggesting ischemia vs LVH Abnormal EKG Confirmed by JUANITA BECK MD ([id number]) on 03/29/2020 7:29:02 PM Referred By: MIAH Confirmed By:JUANITA BECK MD
--- NOTE | 2020-03-29 19:36 | EKG ---
Test Reason : Blood Pressure : / mmHG Vent. Rate : 066 BPM Atrial Rate : 066 BPM P-R Int : 170 ms QRS Dur : 090 ms QT Int : 418 ms P-R-T Axes : 028 028 063 degrees QTc Int : 438 ms Normal sinus rhythm Normal ECG When compared with ECG of 17-MAR-2020 23:31, (Unconfirmed) T wave inversion no longer evident in Inferior leads T wave inversion no longer evident in Anterolateral leads Confirmed by JUANITA BECK MD ([id number]) on 03/29/2020 7:36:11 PM Referred By: Confirmed By:JUANITA BECK MD
== END 2020-03-22 14:00 | disposition home or self-care (01) | DRG 273 ==
LOC: ERS 14:59 → 2NO 19:37
PROVIDERS: ADMIT Internal Medicine; ATTEND Internal Medicine
PROC: 5A2204Z Restoration of Cardiac Rhythm, Single (ICD-10-PCS; 2020-03-17)
PROC: 02583ZZ Destruction of Conduction Mechanism, Percutaneous Approach (ICD-10-PCS; principal; 2020-03-20)
PROC: 4A0234Z Measurement of Cardiac Electrical Activity, Percutaneous Approach (ICD-10-PCS; 2020-03-20)
PROC: 02K83ZZ Map Conduction Mechanism, Percutaneous Approach (ICD-10-PCS; 2020-03-20)
PROC: 4A023FZ Measurement of Cardiac Rhythm, Percutaneous Approach (ICD-10-PCS; 2020-03-20)
DX: I47.1 Supraventricular tachycardia (principal); I21.A1 Myocardial infarction type 2; N17.9 Acute kidney failure, unspecified; Z20.822 Contact with and (suspected) exposure to COVID-19; I10 Essential (primary) hypertension; E87.6 Hypokalemia; D53.9 Nutritional anemia, unspecified; E78.1 Pure hyperglyceridemia; F17.220 Nicotine dependence, chewing tobacco, uncomplicated; E78.2 Mixed hyperlipidemia; I95.9 Hypotension, unspecified; Z88.1 Allergy status to other antibiotic agents; Z88.0 Allergy status to penicillin; Z95.5 Presence of coronary angioplasty implant and graft; Z83.1 Family history of other infectious and parasitic diseases; Z82.49 Family history of ischemic heart disease and other diseases of the circulatory system; Z79.899 Other long term (current) drug therapy
CPT/HCPCS: 36415; 71045; 76942; 78452; 80048; 80053; 80061; 80306; 80307; 81001; 82553; 83735; 83880; 84443; 84484; 85025; 85379; 87086; 87635; 93005; 93010; 93017; 93306; 93613; 93623; 93653; 94760; 96372; A9500; J0153; J1644; J1650; J1885; J2250; J2270; J2370; J2405; J2704; J3010; J3475; U0003; U0005

== ENCOUNTER 2021-10-15 15:09 | Outpatient (CLI) | payer MEDICARE, OTHER | END 2021-10-15 15:10 | disposition home or self-care (01) | LOC: BICCT 15:09 | PROVIDERS: ATTEND Family Medicine | DX: R10.9 Unspecified abdominal pain (principal); N20.0 Calculus of kidney | CPT/HCPCS: 74176 ==

== ENCOUNTER 2022-01-10 11:37 | Outpatient (CLI) | payer MEDICARE, OTHER ==
[~2022-01-10 11:37] MED LIST: Iopamidol 370 76% 100 ML VIAL ONE
== END 2022-01-10 11:38 | disposition home or self-care (01) ==
LOC: BICCT 11:37
PROVIDERS: ATTEND Urology
DX: N28.1 Cyst of kidney, acquired (principal); N28.89 Other specified disorders of kidney and ureter
CPT/HCPCS: 74170; Q9967

== ENCOUNTER 2022-02-15 08:30 | Day surgery (SDC) | payer MEDICARE, OTHER ==
[2022-02-14 15:12] VITALS: BMI 28.7
[~2022-02-15 08:30] MED LIST changes: +FLU VACC QS2022-23(65YR UP)/PF 240 MCG/0.7 ML SYRINGE IM ONE; -Iopamidol 370 76% 100 ML VIAL ONE
[2022-02-15 08:45] LABS: #Eosinphils 0.2 thou/uL (0.0-0.7); #Lymphocytes 2.2 thou/uL (1.20-3.40); #Monocytes 0.8 thou/uL (0.11-0.59); #Neutrophils 3.9 thou/uL (1.40-6.50); %Basophils 0.2 % (0.0-1.0); %Eosinophils 2.4 % (0.0-10.0); %Lymphocytes 30.9 % (21.0-51.0); %Monocytes 10.8 % (0.0-10.0); %Neutrophils 55.7 % (42.0-75.0); Hemoglobin 15.4 g/dL (14.0-18.0); Mean Corpuscular HGB CONC 32.9 g/dL (32.0-36.0); Mean Corpuscular Hemoglobin 33.1 pg (27.0-31.0); Mean Platelet Volume 8.4 fL (7.4-10.4); Platelet Count 212 10x3/uL (130-400); RBC Distribution Width 12.3 % (11.5-14.5); Red Blood Cell (RBC) Count 4.66 mill/uL (4.70-6.10)
[2022-02-15 08:58] LABS: INR-International Normal Ratio 0.9; PTT 23.9 sec (22.9-36.1); Prothrombin Time 12.8 sec (12.0-14.7)
[2022-02-15] MEDS ORDERED: Sodium Bicarbonate 2.5 MEQ/5 ML VIAL ONE (09:58)
[2022-02-15] MEDS ORDERED: Lidocaine 2% PF 5 ML VIAL ONE (09:58)
[2022-02-15] MEDS ORDERED: Midazolam HCl 2 mg/2 ml Vial ONE (09:58)
[2022-02-15] MEDS ORDERED: FENTANYL 50 MCG/ML 1 ML VIAL ONE (09:58)
[2022-02-15 10:09] VITALS: BP 143/88; TEMP 98.8
== END 2022-02-15 14:22 | disposition home or self-care (01) ==
LOC: CT 08:30
PROVIDERS: ATTEND Urology
PROC: 0TB03ZX Excision of Right Kidney, Percutaneous Approach, Diagnostic (ICD-10-PCS; principal; 2022-02-15)
PROC: 0T903ZZ Drainage of Right Kidney, Percutaneous Approach (ICD-10-PCS; 2022-02-15)
DX: C64.1 Malignant neoplasm of right kidney, except renal pelvis (principal); N28.1 Cyst of kidney, acquired; I10 Essential (primary) hypertension; I25.118 Atherosclerotic heart disease of native coronary artery with other forms of angina pectoris; I47.1 Supraventricular tachycardia; N52.9 Male erectile dysfunction, unspecified; N40.1 Benign prostatic hyperplasia with lower urinary tract symptoms; N40.3 Nodular prostate with lower urinary tract symptoms; R35.0 Frequency of micturition; I25.2 Old myocardial infarction; K21.9 Gastro-esophageal reflux disease without esophagitis; Z79.899 Other long term (current) drug therapy; Z88.0 Allergy status to penicillin; Z88.8 Allergy status to other drugs, medicaments and biological substances
CPT/HCPCS: 50020; 50200; 77012 ×2; 85025; 85610; 85730; J3010; 36415; 88305; 88333; 88334; J2001; J2250

== ENCOUNTER 2022-03-01 10:53 | Outpatient (CLI) | payer MEDICARE, OTHER | END 2022-03-01 10:54 | disposition home or self-care (01) | LOC: RAD 10:53 | PROVIDERS: ATTEND Family Medicine | DX: M47.894 Other spondylosis, thoracic region (principal); M47.896 Other spondylosis, lumbar region | CPT/HCPCS: 72072; 72100 ==

== ENCOUNTER 2022-05-24 11:00 | Inpatient (IN) | payer MEDICARE ==
[2022-06-02 16:05] VITALS: BMI 28.8
[2022-06-06] MEDS ORDERED: Neomycin-Polymyxin 1 ML AMP ONE (06:24)
[2022-06-06] MEDS ORDERED: Famotidine/PF 20 mg/2ml Vial ONE (06:35)
[2022-06-06] MEDS ORDERED: Fentanyl 250 MCG/5 ML VIAL ONE (06:35)
[2022-06-06] MEDS ORDERED: SUGAMMADEX SODIUM 200 MG/2 ML VIAL ONE (06:35)
[2022-06-06] MEDS ORDERED: fentaNYL 50 mcg/mL 1 mL Vial ONE (07:07)
[2022-06-06] MEDS ORDERED: Midazolam HCl 2 mg/2 ml Vial ONE (07:07)
[2022-06-06] MEDS ORDERED: Levofloxacin 500 mg/D5W 100 ml Premix Bag ONE (07:08)
[2022-06-06] MEDS ORDERED: Phenylephrine 10 MG/ML VIAL ONE ×2 (07:34→08:32)
[2022-06-06] MEDS ORDERED: Rocuronium Bromide 10 MG/ML (10ML VIAL) ONE ×2 (07:34→08:32)
[2022-06-06] MEDS ORDERED: Lidocaine 1% PF 5 ML VIAL ONE (07:34)
[2022-06-06] MEDS ORDERED: Lidocaine 1.5% w/Epi 1:200K 30 ML VIAL (Epid Use) ONE (07:34)
[2022-06-06] MEDS ORDERED: PROPOFOL 200 MG/20 ML VIAL ONE ×2 (07:34→08:32)
[2022-06-06] MEDS ORDERED: Promethazine HCl 25 MG SUPP PR PRN (07:45)
[2022-06-06] MEDS ORDERED: Ondansetron PF 4 MG/2 ML Vial IVP PRN (07:45)
[2022-06-06] MEDS ORDERED: diphenhydrAMINE 25 MG CAP PO PRN (07:45)
[2022-06-06] MEDS ORDERED: Moisturizing Cream (Eucerin) 113 GM JAR TOP PRN (07:45)
[2022-06-06] MEDS ORDERED: Promethazine HCl 25 MG/ML VIAL IM PRN ×2 (07:45→10:20)
[2022-06-06] MEDS ORDERED: diphenhydrAMINE 50 MG/ML VIAL IM PRN (07:45)
[2022-06-06] MEDS ORDERED: traMADol HCl 50 MG TAB PO PRN ×2 (07:45)
[2022-06-06] MEDS ORDERED: diphenhydrAMINE 50 MG/ML VIAL IVP PRN (07:45)
[2022-06-06] MEDS ORDERED: Naloxone HCl 0.4 mg/ml Vial IVP PRN (07:45)
[2022-06-06] MEDS ORDERED: Naloxone HCl 0.4 mg/ml Vial IV PRN (07:45)
[2022-06-06] MEDS ORDERED: Zolpidem Tartrate 5 MG TAB PO PRN (07:45)
[2022-06-06] MEDS ORDERED: Bupivacaine 0.25% 10 ML VIAL EPIDURAL PRN (07:45)
[2022-06-06] MEDS ORDERED: Dexamethasone 20 MG/5 ML VIAL ONE (08:32)
[2022-06-06] MEDS ORDERED: Metoclopramide HCl 10 MG/2 ML VIAL ONE (08:32)
[2022-06-06] MEDS ORDERED: ePHEDrine Sulfate 50 MG/10 ML VIAL ONE ×2 (08:32→10:09)
[2022-06-06] MEDS ORDERED: Ondansetron PF 4 MG/2 ML Vial ONE (08:32)
[2022-06-06] MEDS ORDERED: Sevoflurane 250 ML INH ANEST BOTTLE ONE (10:09)
[2022-06-06] MEDS ORDERED: Meperidine HCl/PF 25 MG/ML VIAL SLOW IVP PRN (10:20)
[2022-06-06] MEDS ORDERED: Ondansetron HCl/PF 4 MG/2 ML Vial IVP PRN (10:20)
[2022-06-06] MEDS ORDERED: Mag-Al 1200 mg/1200 mg/30 ML UDCUP PO PRN (11:14)
[2022-06-06] MEDS ORDERED: hydrALAZINE 20 MG/ML VIAL SLOW IVP PRN (11:14)
[2022-06-06] MEDS ORDERED: Phenazopyridine HCl 95 MG TAB PO PRN (11:14)
[2022-06-06] MEDS ORDERED: Acetaminophen 500 MG TAB PO PRN (11:14)
[2022-06-06] MEDS ORDERED: Bisacodyl 10 MG SUPP PR PRN (11:14)
[2022-06-06] MEDS ORDERED: cloNIDine 0.1 MG TAB PO PRN (11:17)
[2022-06-06 11:43] LABS: #Lymphocytes 0.9 thou/uL (1.20-3.40); #Monocytes 0.4 thou/uL (0.11-0.59); #Neutrophils 7.9 thou/uL (1.40-6.50); %Basophils 0.1 % (0.0-1.0); %Eosinophils 0.5 % (0.0-10.0); %Lymphocytes 9.2 % (21.0-51.0); %Monocytes 3.9 % (0.0-10.0); %Neutrophils 86.3 % (42.0-75.0); Hemoglobin 12.7 g/dL (14.0-18.0); Mean Corpuscular HGB CONC 34.1 g/dL (32.0-36.0); Mean Corpuscular Hemoglobin 34.5 pg (27.0-31.0); Mean Platelet Volume 8.5 fL (7.4-10.4); Platelet Count 187 10x3/uL (130-400); RBC Distribution Width 11.9 % (11.5-14.5); Red Blood Cell (RBC) Count 3.68 mill/uL (4.70-6.10); White Blood Cell (WBC) Count 9.2 10x3/uL (4.8-10.8)
[2022-06-06 11:52] LABS: Anion Gap 12 mmol/L (10-20); BUN (Urea Nitrogen) 15 mg/dL (8.4-25.7); Calc. Creatinine Clearance 96 mL/min (70-130); Calcium 8.1 mg/dL (7.8-10.44); Carbon Dioxide 21 mmol/L (23-31); Chloride 108 mmol/L (98-107); Estimated GFR 92; Glucose 187 mg/dL (80-115); Potassium 3.8 mmol/L (3.5-5.1); Sodium 137 mmol/L (136-145)
[2022-06-06] MEDS ORDERED: Phenazopyridine HCl 100 MG TAB PO PRN (12:06)
[2022-06-06] MEDS: Sodium Chloride 0.9% 1,000 ML IV SCH ×2 (14:55→20:23)
[2022-06-06] MEDS: HYDROcodone/Acetaminophen 5/325 mg Tablet PO PRN (17:43)
[2022-06-06] MEDS: Docusate 100 MG CAP PO SCH (20:15)
[2022-06-06] MEDS: Famotidine/PF 20 mg/2ml Vial SLOW IVP SCH (20:15)
[2022-06-06] MEDS: Fentanyl/Bupivacaine 100 ML EPIDURAL SCH (22:22)
[2022-06-07] MEDS: HYDROcodone/Acetaminophen 5/325 mg Tablet PO PRN ×3 (01:28→16:46)
[2022-06-07] MEDS: Sodium Chloride 0.9% 1,000 ML IV SCH (03:45)
[2022-06-07 06:29] LABS: #Lymphocytes 1.1 thou/uL (1.20-3.40); #Monocytes 1.3 thou/uL (0.11-0.59); #Neutrophils 10.1 thou/uL (1.40-6.50); %Basophils 0.3 % (0.0-1.0); %Eosinophils 0.1 % (0.0-10.0); %Lymphocytes 8.9 % (21.0-51.0); %Monocytes 10.5 % (0.0-10.0); %Neutrophils 80.2 % (42.0-75.0); Hemoglobin 11.7 g/dL (14.0-18.0); Mean Corpuscular HGB CONC 35.1 g/dL (32.0-36.0); Mean Corpuscular Hemoglobin 35.9 pg (27.0-31.0); Mean Platelet Volume 8.5 fL (7.4-10.4); Platelet Count 170 10x3/uL (130-400); RBC Distribution Width 12.1 % (11.5-14.5); Red Blood Cell (RBC) Count 3.27 mill/uL (4.70-6.10); White Blood Cell (WBC) Count 12.6 10x3/uL (4.8-10.8)
[2022-06-07 06:39] LABS: Anion Gap 10 mmol/L (10-20); BUN (Urea Nitrogen) 17 mg/dL (8.4-25.7); Calc. Creatinine Clearance 82 mL/min (70-130); Calcium 8.2 mg/dL (7.8-10.44); Carbon Dioxide 22 mmol/L (23-31); Chloride 107 mmol/L (98-107); Estimated GFR 76; Glucose 127 mg/dL (80-115); Sodium 135 mmol/L (136-145)
[2022-06-07] MEDS ORDERED: Tamsulosin HCl 0.4 MG CAP PO SCH (09:00)
[2022-06-07] MEDS ORDERED: Metoprolol Tartrate 50 MG TAB PO SCH (09:00)
[2022-06-07] MEDS: Tamsulosin HCl 0.4 MG CAP PO SCH (09:43)
[2022-06-07] MEDS: Docusate 100 MG CAP PO SCH ×2 (09:43→20:44)
[2022-06-07] MEDS: Famotidine/PF 20 mg/2ml Vial SLOW IVP SCH ×2 (09:43→20:44)
[2022-06-07] MEDS: Lisinopril/Hydrochlorothiazide 20/25 mg Tablet PO SCH (09:43)
[2022-06-07] MEDS: Polyethylene Glycol 3350 17 GM Packet PO SCH (09:44)
[2022-06-07] MEDS: Metoprolol Tartrate 100 MG TAB PO SCH (09:44)
[2022-06-07] MEDS: Fentanyl/Bupivacaine 100 ML EPIDURAL SCH (17:25)
[2022-06-08] MEDS: HYDROcodone/Acetaminophen 5/325 mg Tablet PO PRN ×4 (00:45→23:03)
[2022-06-08 06:02] LABS: #Eosinphils 0.1 thou/uL (0.0-0.7); #Lymphocytes 1.7 thou/uL (1.20-3.40); #Monocytes 0.9 thou/uL (0.11-0.59); #Neutrophils 7.1 thou/uL (1.40-6.50); %Basophils 0.1 % (0.0-1.0); %Eosinophils 1.1 % (0.0-10.0); %Lymphocytes 17.2 % (21.0-51.0); %Monocytes 9.5 % (0.0-10.0); %Neutrophils 72.1 % (42.0-75.0); Hemoglobin 10.8 g/dL (14.0-18.0); Mean Corpuscular HGB CONC 34.8 g/dL (32.0-36.0); Mean Corpuscular Hemoglobin 35.8 pg (27.0-31.0); Mean Platelet Volume 8.3 fL (7.4-10.4); Platelet Count 151 10x3/uL (130-400); Red Blood Cell (RBC) Count 3.03 mill/uL (4.70-6.10); White Blood Cell (WBC) Count 9.9 10x3/uL (4.8-10.8)
[2022-06-08 06:22] LABS: Anion Gap 14 mmol/L (10-20); BUN (Urea Nitrogen) 23 mg/dL (8.4-25.7); Calc. Creatinine Clearance 81 mL/min (70-130); Calcium 8.4 mg/dL (7.8-10.44); Carbon Dioxide 20 mmol/L (23-31); Chloride 104 mmol/L (98-107); Estimated GFR 75; Glucose 90 mg/dL (80-115); Sodium 134 mmol/L (136-145)
[2022-06-08] MEDS: Docusate 100 MG CAP PO SCH ×2 (09:00→20:05)
[2022-06-08] MEDS: Polyethylene Glycol 3350 17 GM Packet PO SCH (09:00)
[2022-06-08] MEDS: Lisinopril/Hydrochlorothiazide 20/25 mg Tablet PO SCH (09:01)
[2022-06-08] MEDS: Tamsulosin HCl 0.4 MG CAP PO SCH (09:02)
[2022-06-08] MEDS: Famotidine/PF 20 mg/2ml Vial SLOW IVP SCH ×2 (09:02→20:03)
[2022-06-08] MEDS: Metoprolol Tartrate 100 MG TAB PO SCH (09:03)
[2022-06-08] MEDS: Fentanyl/Bupivacaine 100 ML EPIDURAL SCH (14:06)
[2022-06-09] MEDS: Fentanyl/Bupivacaine 100 ML EPIDURAL SCH ×2 (01:20→18:56)
[2022-06-09 06:11] LABS: #Eosinphils 0.2 thou/uL (0.0-0.7); #Lymphocytes 1.7 thou/uL (1.20-3.40); #Neutrophils 5.2 thou/uL (1.40-6.50); %Basophils 0.4 % (0.0-1.0); %Eosinophils 1.9 % (0.0-10.0); %Lymphocytes 21.6 % (21.0-51.0); %Monocytes 11.9 % (0.0-10.0); %Neutrophils 64.1 % (42.0-75.0); Hemoglobin 10.6 g/dL (14.0-18.0); Mean Corpuscular HGB CONC 33.9 g/dL (32.0-36.0); Mean Corpuscular Hemoglobin 34.9 pg (27.0-31.0); Mean Platelet Volume 8.5 fL (7.4-10.4); Platelet Count 145 10x3/uL (130-400); RBC Distribution Width 12.1 % (11.5-14.5); Red Blood Cell (RBC) Count 3.03 mill/uL (4.70-6.10); White Blood Cell (WBC) Count 8.1 10x3/uL (4.8-10.8)
[2022-06-09 06:28] LABS: Anion Gap 15 mmol/L (10-20); BUN (Urea Nitrogen) 18 mg/dL (8.4-25.7); Calc. Creatinine Clearance 100 mL/min (70-130); Calcium 8.4 mg/dL (7.8-10.44); Carbon Dioxide 20 mmol/L (23-31); Chloride 104 mmol/L (98-107); Estimated GFR 95; Glucose 86 mg/dL (80-115); Potassium 3.7 mmol/L (3.5-5.1); Sodium 135 mmol/L (136-145)
[2022-06-09] MEDS: Ketorolac Tromethamine 30 MG/ML VIAL IVP SCH ×3 (08:32→20:27)
[2022-06-09] MEDS: Famotidine/PF 20 mg/2ml Vial SLOW IVP SCH (08:32)
[2022-06-09] MEDS: Tamsulosin HCl 0.4 MG CAP PO SCH (08:32)
[2022-06-09] MEDS: Metoprolol Tartrate 100 MG TAB PO SCH (08:32)
[2022-06-09] MEDS: Lisinopril/Hydrochlorothiazide 20/25 mg Tablet PO SCH (08:32)
[2022-06-09] MEDS: Docusate 100 MG CAP PO SCH ×2 (08:33→20:31)
[2022-06-09] MEDS: Polyethylene Glycol 3350 17 GM Packet PO SCH (08:33)
[2022-06-09] MEDS ORDERED: HYDROcodone/Acetaminophen 7.5/325 mg Tablet PO PRN ×2 (11:30)
[2022-06-09] MEDS ORDERED: fentaNYL 50 mcg/mL 1 mL Vial SLOW IVP PRN (11:31)
[2022-06-09] MEDS: Famotidine 20 MG TAB PO SCH (20:28)
[2022-06-10] MEDS: Ketorolac Tromethamine 30 MG/ML VIAL IVP SCH ×3 (03:06→14:36)
[2022-06-10 06:03] LABS: #Eosinphils 0.2 thou/uL (0.0-0.7); #Lymphocytes 1.5 thou/uL (1.20-3.40); #Monocytes 0.7 thou/uL (0.11-0.59); #Neutrophils 4.4 thou/uL (1.40-6.50); %Basophils 0.1 % (0.0-1.0); %Eosinophils 3.2 % (0.0-10.0); %Lymphocytes 22.3 % (21.0-51.0); %Monocytes 10.7 % (0.0-10.0); %Neutrophils 63.7 % (42.0-75.0); Hemoglobin 10.7 g/dL (14.0-18.0); Mean Corpuscular HGB CONC 35.4 g/dL (32.0-36.0); Mean Corpuscular Hemoglobin 35.9 pg (27.0-31.0); Mean Platelet Volume 8.3 fL (7.4-10.4); Platelet Count 175 10x3/uL (130-400); Red Blood Cell (RBC) Count 2.98 mill/uL (4.70-6.10); White Blood Cell (WBC) Count 6.9 10x3/uL (4.8-10.8)
[2022-06-10 06:20] LABS: Anion Gap 12 mmol/L (10-20); BUN (Urea Nitrogen) 19 mg/dL (8.4-25.7); Calc. Creatinine Clearance 97 mL/min (70-130); Calcium 8.7 mg/dL (7.8-10.44); Carbon Dioxide 24 mmol/L (23-31); Chloride 103 mmol/L (98-107); Estimated GFR 94; Glucose 107 mg/dL (80-115); Potassium 3.3 mmol/L (3.5-5.1); Sodium 136 mmol/L (136-145)
[2022-06-10] MEDS: Metoprolol Tartrate 100 MG TAB PO SCH (08:26)
[2022-06-10] MEDS: Polyethylene Glycol 3350 17 GM Packet PO SCH (08:26)
[2022-06-10] MEDS: Tamsulosin HCl 0.4 MG CAP PO SCH (08:26)
[2022-06-10] MEDS: Famotidine 20 MG TAB PO SCH (08:27)
[2022-06-10] MEDS: Lisinopril/Hydrochlorothiazide 20/25 mg Tablet PO SCH (08:27)
[2022-06-10] MEDS: Docusate 100 MG CAP PO SCH (08:28)
[2022-06-10 11:09] VITALS: BP 116/71; TEMP 98.3
== END 2022-06-10 15:33 | disposition home or self-care (01) | DRG 658 ==
LOC: SURG A 06-06 06:16 → SJJU 06-06 14:03
PROVIDERS: ADMIT Urology; ATTEND Urology
PROC: 0T768DZ Dilation of Right Ureter with Intraluminal Device, Via Natural or Artificial Opening Endoscopic (ICD-10-PCS; principal; 2022-06-06)
PROC: 0TB00ZZ Excision of Right Kidney, Open Approach (ICD-10-PCS; 2022-06-06)
PROC: 0TD Urinary System, Extraction (ICD-10-PCS; 2022-06-06)
PROC: BT1DZZZ Fluoroscopy of Right Kidney, Ureter and Bladder (ICD-10-PCS; 2022-06-06)
PROC: 0T9B8ZZ Drainage of Bladder, Via Natural or Artificial Opening Endoscopic (ICD-10-PCS; 2022-06-06)
PROC: BT1DZZZ Fluoroscopy of Right Kidney, Ureter and Bladder (ICD-10-PCS; 2022-06-06)
DX: C64.1 Malignant neoplasm of right kidney, except renal pelvis (principal); K21.9 Gastro-esophageal reflux disease without esophagitis; Z79.899 Other long term (current) drug therapy; Z88.1 Allergy status to other antibiotic agents; Z88.0 Allergy status to penicillin
CPT/HCPCS: 36415; 74018; 74420; 80048; 82570; 85025; 86850; 86900; 86901; 88307; 94640; C1713; C1776; C1889; C2617; J1100; J1885; J1956; J2001; J2250; J2370; J2405; J2704; J2765; J3010; J7050; J7611; S0028

== ENCOUNTER 2022-06-13 09:49 | Inpatient (IN) | payer MEDICARE ==
[2022-06-13] MEDS ORDERED: Iopamidol-370 76% 500 ML MDV (1 ML CHARGE) ONE (09:57)
[2022-06-13 10:44] LABS: #Eosinphils 0.3 thou/uL (0.0-0.7); #Lymphocytes 0.8 thou/uL (1.20-3.40); #Neutrophils 10.5 thou/uL (1.40-6.50); %Basophils 0.3 % (0.0-1.0); %Eosinophils 2.5 % (0.0-10.0); %Monocytes 8.2 % (0.0-10.0); Hemoglobin 12.9 g/dL (14.0-18.0); Mean Corpuscular HGB CONC 34.7 g/dL (32.0-36.0); Mean Corpuscular Hemoglobin 35.2 pg (27.0-31.0); Mean Platelet Volume 8.1 fL (7.4-10.4); Platelet Count 268 10x3/uL (130-400); Red Blood Cell (RBC) Count 3.65 mill/uL (4.70-6.10); White Blood Cell (WBC) Count 12.7 10x3/uL (4.8-10.8)
[2022-06-13] MEDS ORDERED: Morphine 4 MG/ML VIAL ONE (10:50)
[2022-06-13] MEDS ORDERED: Ondansetron PF 4 MG/2 ML Vial ONE (10:50)
[2022-06-13 10:56] LABS: ALT (SGPT) 30 U/L (8-55); AST (SGOT) 23 U/L (5-34); Alkaline Phosphatase 145 U/L (40-110); Anion Gap 13 mmol/L (10-20); BUN (Urea Nitrogen) 12 mg/dL (8.4-25.7); Calc. Creatinine Clearance 0 mL/min (70-130); Calcium 9.8 mg/dL (7.8-10.44); Carbon Dioxide 25 mmol/L (23-31); Chloride 103 mmol/L (98-107); Estimated GFR 74; Globulin 3.3 g/dL (2.4-3.5); Glucose 124 mg/dL (80-115); Potassium 4.2 mmol/L (3.5-5.1); Protein, Total 7.3 g/dL (5.8-8.1); Sodium 137 mmol/L (136-145)
[2022-06-13] MEDS ORDERED: Propofol 1,000 MG/100 ML VIAL IV ONE (11:50)
[2022-06-13] MEDS ORDERED: Ondansetron ODT 4 MG TAB PO PRN (12:19)
[2022-06-13] MEDS ORDERED: Calcium Carbonate 500 MG ChewTAB PO PRN (12:19)
[2022-06-13] MEDS ORDERED: Senokot S 8.6-50 MG TAB PO PRN (12:19)
[2022-06-13] MEDS ORDERED: Ondansetron PF 4 MG/2 ML Vial IVP PRN (12:19)
[2022-06-13] MEDS ORDERED: Acetaminophen 325 MG TAB PO PRN (12:19)
[2022-06-13] MEDS ORDERED: Benzonatate 100 MG CAP PO PRN (12:24)
[2022-06-13] MEDS ORDERED: VANCOMYCIN 1.75 GM/500 ML BAG 1.75 GM in Premix Bag 1 BAG IVPB SCH (12:30)
[2022-06-13 13:01] LABS: Bacteria/HPF None Seen HPF (None Seen); Bilirubin Negative (Negative); Blood, Urine 2+ (Negative); Clarity Clear (Clear); Glucose, Urine (Dipstick) Normal (Negative); Ketone, Urine Negative (Negative); Leukocyte Negative Leu/uL (Negative); Nitrite Negative (Negative); Protein, Urine (Dipstick) Negative (Neg-Trace); RBC/HPF 21-50 HPF (0-3); Squamous Epithelial None Seen HPF (0-3); Urobilinogen Normal mg/dL (Less than 2); WBC/HPF 0-3 HPF (0-3)
[2022-06-13] MEDS: Sodium Chloride 0.9% 1,000 ML IV SCH (17:23)
[2022-06-13 18:03] VITALS: BMI 27.9
[2022-06-13] MEDS: HYDROcodone/Acetaminophen 10/325 mg Tablet PO PRN (20:06)
[2022-06-14] MEDS: Vancomycin 1 GM in Premix Bag 1 BAG IVPB SCH ×2 (00:05→13:20)
[2022-06-14] MEDS: Sodium Chloride 0.9% 1,000 ML IV SCH (04:44)
[2022-06-14 07:09] LABS: #Eosinphils 0.3 thou/uL (0.0-0.7); #Lymphocytes 1.3 thou/uL (1.20-3.40); #Monocytes 0.8 thou/uL (0.11-0.59); #Neutrophils 6.2 thou/uL (1.40-6.50); %Basophils 0.2 % (0.0-1.0); %Eosinophils 3.6 % (0.0-10.0); %Lymphocytes 14.9 % (21.0-51.0); %Monocytes 8.9 % (0.0-10.0); %Neutrophils 72.5 % (42.0-75.0); Mean Corpuscular HGB CONC 33.8 g/dL (32.0-36.0); Mean Corpuscular Hemoglobin 34.5 pg (27.0-31.0); Mean Platelet Volume 8.1 fL (7.4-10.4); Platelet Count 227 10x3/uL (130-400); RBC Distribution Width 11.9 % (11.5-14.5); Red Blood Cell (RBC) Count 3.17 mill/uL (4.70-6.10); White Blood Cell (WBC) Count 8.5 10x3/uL (4.8-10.8)
[2022-06-14 07:35] LABS: ALT (SGPT) 62 U/L (8-55); AST (SGOT) 79 U/L (5-34); Albumin 3.2 g/dL (3.4-4.8); Alkaline Phosphatase 244 U/L (40-110); Anion Gap 11 mmol/L (10-20); BUN (Urea Nitrogen) 14 mg/dL (8.4-25.7); Bilirubin, Total 1.4 mg/dL (0.2-1.2); Calc. Creatinine Clearance 97 mL/min (70-130); Calcium 8.8 mg/dL (7.8-10.44); Carbon Dioxide 23 mmol/L (23-31); Chloride 105 mmol/L (98-107); Estimated GFR 95; Globulin 2.8 g/dL (2.4-3.5); Glucose 106 mg/dL (80-115); Potassium 3.6 mmol/L (3.5-5.1); Sodium 135 mmol/L (136-145)
[2022-06-14] MEDS: Lisinopril/Hydrochlorothiazide 20/25 mg Tablet PO SCH (08:40)
[2022-06-14] MEDS: Metoprolol Tartrate 100 MG TAB PO SCH (08:41)
[2022-06-14] MEDS: Tamsulosin HCl 0.4 MG CAP PO SCH (08:41)
[2022-06-14 15:24] LABS: Legionella Urinary Ag Negative (Negative); Strep pneumo Urine Ag NEGATIVE (NEGATIVE)
[2022-06-14] MEDS: HYDROcodone/Acetaminophen 10/325 mg Tablet PO PRN (20:04)
[2022-06-14] MEDS: metroNIDAZOLE 500 MG in Premix Bag 1 BAG IVPB SCH (20:34)
[2022-06-15 01:16] LABS: Vancomycin, Trough 14.7 ug/mL
[2022-06-15] MEDS: Vancomycin 1 GM in Premix Bag 1 BAG IVPB SCH ×2 (01:26→12:44)
[2022-06-15] MEDS: metroNIDAZOLE 500 MG in Premix Bag 1 BAG IVPB SCH (05:12)
[2022-06-15 07:39] LABS: #Eosinphils 0.5 thou/uL (0.0-0.7); #Lymphocytes 1.3 thou/uL (1.20-3.40); #Monocytes 0.9 thou/uL (0.11-0.59); #Neutrophils 6.5 thou/uL (1.40-6.50); %Basophils 0.2 % (0.0-1.0); %Eosinophils 5.1 % (0.0-10.0); %Lymphocytes 13.9 % (21.0-51.0); %Monocytes 10.3 % (0.0-10.0); %Neutrophils 70.6 % (42.0-75.0); Hemoglobin 11.4 g/dL (14.0-18.0); Mean Corpuscular HGB CONC 34.7 g/dL (32.0-36.0); Mean Platelet Volume 8.1 fL (7.4-10.4); Platelet Count 245 10x3/uL (130-400); RBC Distribution Width 11.9 % (11.5-14.5); Red Blood Cell (RBC) Count 3.26 mill/uL (4.70-6.10); White Blood Cell (WBC) Count 9.2 10x3/uL (4.8-10.8)
[2022-06-15 08:02] LABS: ALT (SGPT) 43 U/L (8-55); AST (SGOT) 27 U/L (5-34); Albumin 3.3 g/dL (3.4-4.8); Alkaline Phosphatase 198 U/L (40-110); Anion Gap 16 mmol/L (10-20); BUN (Urea Nitrogen) 14 mg/dL (8.4-25.7); Bilirubin, Total 0.7 mg/dL (0.2-1.2); Calc. Creatinine Clearance 84 mL/min (70-130); Carbon Dioxide 21 mmol/L (23-31); Chloride 102 mmol/L (98-107); Estimated GFR 82; Globulin 3.3 g/dL (2.4-3.5); Glucose 104 mg/dL (80-115); Potassium 3.7 mmol/L (3.5-5.1); Protein, Total 6.6 g/dL (5.8-8.1); Sodium 135 mmol/L (136-145)
[2022-06-15] MEDS: Polyethylene Glycol 3350 17 GM Packet PO SCH (08:50)
[2022-06-15] MEDS: Tamsulosin HCl 0.4 MG CAP PO SCH (08:50)
[2022-06-15] MEDS: Metoprolol Tartrate 100 MG TAB PO SCH (08:50)
[2022-06-15] MEDS: Lisinopril/Hydrochlorothiazide 20/25 mg Tablet PO SCH (08:57)
[2022-06-15] MEDS: HYDROcodone/Acetaminophen 10/325 mg Tablet PO PRN (13:59)
[2022-06-16] MEDS: Tamsulosin HCl 0.4 MG CAP PO SCH (09:08)
[2022-06-16] MEDS: Metoprolol Tartrate 100 MG TAB PO SCH (09:08)
[2022-06-16] MEDS: Lisinopril/Hydrochlorothiazide 20/25 mg Tablet PO SCH (09:08)
[2022-06-16] MEDS: Polyethylene Glycol 3350 17 GM Packet PO SCH (09:09)
[2022-06-16] MEDS ORDERED: guaiFENesin/DM ER PO SCH (13:45)
[2022-06-16] MEDS: HYDROcodone/Acetaminophen 10/325 mg Tablet PO PRN (14:18)
[2022-06-16] MEDS ORDERED: Albuterol 200 PUFF (6.7GM INHALER) INH SCH (17:00)
[2022-06-16] MEDS: guaiFENesin/DM ER PO SCH (20:09)
[2022-06-17 07:37] VITALS: BP 109/58; TEMP 97.5
[2022-06-17] MEDS: Metoprolol Tartrate 100 MG TAB PO SCH (08:45)
[2022-06-17] MEDS: Lisinopril/Hydrochlorothiazide 20/25 mg Tablet PO SCH (08:45)
[2022-06-17] MEDS: Polyethylene Glycol 3350 17 GM Packet PO SCH (08:46)
[2022-06-17] MEDS: guaiFENesin/DM ER PO SCH (08:54)
[2022-06-17] MEDS: Tamsulosin HCl 0.4 MG CAP PO SCH (08:54)
== END 2022-06-17 10:32 | disposition home or self-care (01) | DRG 871 ==
LOC: SUATTDRO 09:49 → ERS 09:49 → ERHOLD 12:35 → T4-A 16:24
PROVIDERS: ADMIT Internal Medicine; ATTEND Internal Medicine
DX: A41.9 Sepsis, unspecified organism (principal); J18.9 Pneumonia, unspecified organism; N17.9 Acute kidney failure, unspecified; I10 Essential (primary) hypertension; I25.10 Atherosclerotic heart disease of native coronary artery without angina pectoris; N40.0 Benign prostatic hyperplasia without lower urinary tract symptoms; Z88.1 Allergy status to other antibiotic agents; Z88.0 Allergy status to penicillin; Z88.8 Allergy status to other drugs, medicaments and biological substances; Z79.899 Other long term (current) drug therapy; I25.2 Old myocardial infarction; Z98.890 Other specified postprocedural states
CPT/HCPCS: 36415; 71045; 74178; 76705; 80053; 80202; 81001; 82570; 83605; 84145; 85025; 87040; 87070; 87081; 87086; 87205; 87449; 87899; 93005; 94640; 96365; 96366; 96367; 96375; J1956; J2270; J2405; J2704; J3370; J3370-JW; J7050; J7611; Q9967

== ENCOUNTER 2022-07-07 12:12 | Outpatient (CLI) | payer MEDICARE | END 2022-07-07 12:13 | disposition home or self-care (01) | LOC: RAD 12:12 | PROVIDERS: ATTEND Family Medicine | DX: R05.3 Chronic cough (principal); J98.8 Other specified respiratory disorders | CPT/HCPCS: 71046 ==

== ENCOUNTER 2022-07-07 13:08 | Outpatient (CLI) | payer MEDICARE ==
[~2022-07-07 13:08] MED LIST changes: -FLU VACC QS2022-23(65YR UP)/PF 240 MCG/0.7 ML SYRINGE IM ONE; +Iopamidol 370 76% 100 ML VIAL ONE
== END 2022-07-07 13:09 | disposition home or self-care (01) ==
LOC: CT 13:08
PROVIDERS: ATTEND Family Medicine
DX: R05.3 Chronic cough (principal); J98.4 Other disorders of lung
CPT/HCPCS: 36415; 71046; 71275; 80053; 85025; 85379; Q9967

== ENCOUNTER 2022-12-30 15:04 | Outpatient (CLI) | payer MEDICARE | END 2022-12-30 15:05 | disposition home or self-care (01) | LOC: ULT 15:04 | PROVIDERS: ATTEND Urology | DX: Z12.5 Encounter for screening for malignant neoplasm of prostate (principal); C64.1 Malignant neoplasm of right kidney, except renal pelvis; N20.0 Calculus of kidney; N28.1 Cyst of kidney, acquired; J18.9 Pneumonia, unspecified organism; R35.0 Frequency of micturition; Z90.5 Acquired absence of kidney | CPT/HCPCS: 71046; 76770 ==